=== PATIENT | male | born 1935 | race Caucasian/White ===

== ENCOUNTER 2019-04-04 17:37 | Inpatient (IN) | payer MEDICARE ==
[~2019-04-04] VITALS: Ht 170.2 cm; Wt 84.4 kg
[~2019-04-04 17:37] MED LIST: ASCO500T3 PO; ASPI-630 PO; ATOR40TA59 PO; CYAN-25 PO; FINA5TAB4 PO; LISI-334 PO; METO50TA6 PO; MULT1TAB6 PO; OMEG1CAP27 PO; PANT20TA2 PO; SUCR1TAB PO
[2019-04-04] MEDS ORDERED: NITROGLYCERIN SUBLINGUAL 0.4 MG BOTTLE OF 25. SL PRN (17:45)
--- NOTE | 2019-04-04 17:53 | PHYS DOC ---
Adult General Chief Complaint Chief Complaint: CHEST PAIN [facility] HPI 83-year-old male presents to the emergency Department complaints of chest pressure, shortness of breath with exertion. Patient has a history of coronary artery disease status post 2 stents in the LAD. He states over the last 3 days he's had chest pressure as well as shortness of breath with exertion. Currently denies any chest pain or pressure at this time. Patient has a permanent pacemaker placement secondary to complete heart block. Patient denies any nausea, vomiting, bowel pain, headache or visual changes. Exertion makes his pain and shortness of breath worse. (RENATO ANDREWS MD) [facility] Patient care turned over to me at shift change. EKG didn't show any acute changes. Remaining troponin results and lab results. His chest x-ray does not show any acute disease. Stable from. Previous. (MJ PARK DO) Review of Systems Review of Systems Constitutional: Denies fever or chills [] Respiratory: Shortness of Breath Cardiovascular: No additional information not addressed in HPI [] GI: Denies abdominal pain, nausea, vomiting, bloody stools or diarrhea [] Musculoskeletal: Denies back pain or joint pain [] Neurologic: Denies headache, focal weakness or sensory changes [] All other systems were reviewed and found to be within normal limits, except as documented in this note. (RENATO ANDREWS MD) Current Medications Current Medications Current Medications Medications (Trade) Dose Ordered Sig/Jamia Start Time Stop Time Status Last Admin Dose Admin Lisinopril (Prinivil) 20 mg 1X ONCE 04/04/19 19:45 04/04/19 19:46 UNV Metoprolol Tartrate (Lopressor) 50 mg 1X ONCE 04/04/19 19:45 04/04/19 19:46 UNV Nitroglycerin (Nitrostat) 0.4 mg PRN Q5MIN PRN 04/04/19 17:45 04/05/19 17:44 04/04/19 18:30 0.4 MG (MJ PARK DO) Allergies Allergies Allergies Coded Allergies Type Severity Reaction Last Updated Verified No Known Drug Allergies 08/04/18 No (MJ PARK DO) Physical Exam Physical Exam Constitutional: Well developed, well nourished, no acute distress, non-toxic appearance. [] HENT: Normocephalic, atraumatic, bilateral external ears normal, oropharynx moist, no oral exudates, nose normal. [] Eyes: PERRLA, EOMI, conjunctiva normal, no discharge. [] Cardiovascular:Heart rate regular rhythm, no murmur [] Lungs & Thorax: Bilateral breath sounds clear to auscultation [] Abdomen: Bowel sounds normal, soft, no tenderness, no masses, no pulsatile masses. [] Skin: Warm, dry, no erythema, no rash. [] Back: No tenderness, no CVA tenderness. [] Extremities: No tenderness, no edema. [] Neurologic: Alert and oriented X 3, no focal deficits noted. [] Psychologic: Affect normal, judgement normal, mood normal. [] (RENATO ANDREWS MD) Current Patient Data Vital Signs Vital Signs Date Time Temp Pulse Resp B/P (MAP) Pulse Ox O2 Delivery O2 Flow Rate FiO2 04/04/19 19:00 78 20 166/120 (135) 95 Room Air 04/04/19 17:41 98.1 98.1 ([facility] ) Lab Values Laboratory Tests Test 04/04/19 17:51 White Blood Count 7.6 x10^3/uL (4.0-11.0) Red Blood Count 4.41 x10^6/uL (4.30-5.70) Hemoglobin 14.3 g/dL (13.0-17.5) Hematocrit 42.0 % (39.0-53.0) Mean Corpuscular Volume 95 fL (79-100) Mean Corpuscular Hemoglobin 32 pg (25-35) Mean Corpuscular Hemoglobin Concent 34 g/dL (31-37) Red Cell Distribution Width 14.2 % (11.5-14.5) Platelet Count 158 x10^3/uL (140-400) Neutrophils (%) (Auto) 56 % (31-73) Lymphocytes (%) (Auto) 32 % (24-48) Monocytes (%) (Auto) 10 % (0-9) H Eosinophils (%) (Auto) 1 % (0-3) Basophils (%) (Auto) 1 % (0-3) Neutrophils # (Auto) 4.3 x10^3/uL (1.8-7.7) Lymphocytes # (Auto) 2.5 x10^3/uL (1.0-4.8) Monocytes # (Auto) 0.8 x10^3/uL (0.0-1.1) Eosinophils # (Auto) 0.1 x10^3/uL (0.0-0.7) Basophils # (Auto) 0.0 x10^3/uL (0.0-0.2) Sodium Level 145 mmol/L (136-145) Potassium Level 4.3 mmol/L (3.5-5.1) Chloride Level 107 mmol/L (98-107) Carbon Dioxide Level 29 mmol/L (21-32) Anion Gap 9 (6-14) Blood Urea Nitrogen 16 mg/dL (8-26) Creatinine 1.1 mg/dL (0.7-1.3) Estimated GFR (Cockcroft-Gault) 63.9 BUN/Creatinine Ratio 15 (6-20) Glucose Level 106 mg/dL (70-99) H Calcium Level 9.1 mg/dL (8.5-10.1) Total Bilirubin 0.8 mg/dL (0.2-1.0) Aspartate Amino Transferase (AST) 19 U/L (15-37) Alanine Aminotransferase (ALT) 23 U/L (16-63) Alkaline Phosphatase 89 U/L (46-116) Troponin I Quantitative < 0.017 ng/mL (0.000-0.055) Total Protein 7.2 g/dL (6.4-8.2) Albumin 3.6 g/dL (3.4-5.0) Albumin/Globulin Ratio 1.0 (1.0-1.7) Laboratory Tests 04/04/19 17:51 Laboratory Tests 04/04/19 17:51 (MJ PARK DO) EKG EKG EKG reveals paced rhythm, left axis deviation, heart rate 96, nonurgent EKG[] Interpretation Time: Interpretation time 1750 (RENATO ANDREWS MD) Radiology/Procedures Radiology/Procedures [] (RENATO ANDREWS MD) Radiology/Procedures Chest x-ray is stable from previous. No acute disease. (MJ PARK DO) Course & Med Decision Making Course & Med Decision Making Pertinent Labs and Imaging studies reviewed. (See chart for details) [] 83-year-old male presents to the emergency Department complaints of chest pressure, shortness of breath with exertion. Patient has a history of coronary artery disease status post 2 stents in the LAD. He states over the last 3 days he's had chest pressure as well as shortness of breath with exertion. Currently denies any chest pain or pressure at this time. Patient has a permanent pacemaker placement secondary to complete heart block. Patient denies any nausea, vomiting, bowel pain, headache or visual changes. Exertion makes his pain and shortness of breath worse. (RENATO ANDREWS MD) Course & Med Decision Making Labs are within normal limits. Troponin is negative. EKG does not show any acute changes. Chest x-ray is stable from previous. Patient does say that this is similar to how he felt 20 years ago when he had a heart attack and had 2 stents in his LAD. Patient does say that he had a negative negative stress test 4 months ago. Patient's blood pressure is elevated to 172/70. Patient will need to be observed overnight and have a chest pain work up. I discussed results and plan of care patient. I discussed case with Dr. turk at 8:40 PM. Admission accepted. Patient's home blood pressure medication is given. We'll continue to monitor while patient is in the ED. (MJ PARK DO) Dragon Disclaimer Dragon Disclaimer This electronic medical record was generated, in whole or in part, using a voice recognition dictation system. (RENATO ANDREWS MD) Departure Departure Impression: Primary Impression: Chest pain Referrals: NATHALIA MARTINEZ MD (PCP) Problem Qualifiers Primary Impression: Chest pain Chest pain type: unspecified Qualified Codes: R07.9 - Chest pain, unspecified RENATO ANDREWS MD Apr 04, 2019 17:53 MJ PARK DO Apr 04, 2019 19:38
[2019-04-04 18:00] LABS: BASO % 1 % (0-3); EOS # 0.1 x10^3/uL (0.0-0.7); EOS % 1 % (0-3); HEMOGLOBIN 14.3 g/dL (13.0-17.5); LYMPH # 2.5 x10^3/uL (1.0-4.8); LYMPH % 32 % (24-48); MEAN CORPUSCULAR HEMOGLOBIN 32 pg (25-35); MEAN CORPUSCULAR HGB CONC 34 g/dL (31-37); MEAN CORPUSCULAR VOLUME 95 fL (79-100); MONO # 0.8 x10^3/uL (0.0-1.1); MONO % 10 % (0-9); NEUT # 4.3 x10^3/uL (1.8-7.7); NEUT % 56 % (31-73); PLATELET COUNT 158 x10^3/uL (140-400); RED BLOOD COUNT 4.41 x10^6/uL (4.30-5.70); RED CELL DISTRIBUTION WIDTH 14.2 % (11.5-14.5); WHITE BLOOD COUNT 7.6 x10^3/uL (4.0-11.0)
[2019-04-04 18:10] LABS: CALCIUM 9.1 mg/dL (8.5-10.1); CREATININE 1.1 mg/dL (0.7-1.3); GFR 63.9; POTASSIUM 4.3 mmol/L (3.5-5.1)
[2019-04-04 18:13] LABS: ALBUMIN 3.6 g/dL (3.4-5.0); TOTAL BILIRUBIN 0.8 mg/dL (0.2-1.0); TOTAL PROTEIN 7.2 g/dL (6.4-8.2)
--- NOTE | 2019-04-04 19:49 | PDOC1 ---
History and Physical Date of Admission Date of Admission DATE: 04/04/19 TIME: 19:48 Source Source: Chart review, Patient History of Present Illness History of Present Illness THis is a 83-year-old male admit with acute chest pain. Pain to the left side of his chest, with pressure, and dyspnea and not reproducible. Pain 6/10, started when taking groceries in, now persistes at rest. . Patient has a history of coronary artery disease status post 2 stents in the LAD. He states over the last 3 days he's had chest pressure as well as shortness of breath with exertion. . Patient has a permanent pacemaker placement secondary to complete heart block. Patient denies any nausea, vomiting, bowel pain, headache or visual changes. Exertion makes his pain and shortness of bri ath worse. 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 Past Medical History Cardiovascular: CAD, HTN GI: No pertinent hx Rheumatologic: No pertinent hx Renal/: No pertinent hx Past Surgical History Past Surgical History: Other (stents) Family History Family History: Heart Disease Social History Smoke: Quit (many years ago) ALCOHOL: rare Drugs: None Current Problem List Problem List Problems Medical Problems: (1) Chest pain Status: Acute Current Medications Current Medications Current Medications Nitroglycerin (Nitrostat) 0.4 mg PRN Q5MIN PRN SL CP RATING > 1/10 Last administered on 04/04/19at 18:30; Start 04/04/19 at 17:45; Stop 04/05/19 at 17:44 Active Scripts Active Reported Atorvastatin Calcium 40 Mg Tablet 40 Mg PO HS Metoprolol Tartrate 50 Mg Tablet 1 Tab PO BID Lisinopril 20 Mg Tablet 1 Tab PO BID Sucralfate 1 Gm Tablet 1 Gm PO BID Protonix (Pantoprazole Sodium) 20 Mg Tablet.dr 1 Tab PO DAILY Fish Oil 1,000 Mg Softgel (Braham-3 Fatty Acids/Fish Oil) 1 Each Capsule 1 Each PO DAILY Centrum Complete Multivit Tab (Multivitamin/Iron/Folic Acid) 1 Each Tablet 1 Each PO DAILY Finasteride 5 Mg Tablet 1 Tab PO DAILY Vitamin B-12 (Cyanocobalamin (Vitamin B-12)) 1,000 Mcg Tablet 1 Tab PO DAILY Aspirin 81 Mg Tab.chew 1 Tab PO DAILY Ascorbic Acid 500 Mg Tablet 1,000 Mg PO DAILY Allergies Allergies: Coded Allergies: No Known Drug Allergies (Unverified , 08/04/18) ROS General: No: Chills, Night Sweats, Fatigue, Malaise, Appetite, Other PSYCHOLOGICAL ROS: No: Anxiety, Behavioral Disorder, Concentration difficultie, Decreased libido, Depression, Disorientation, Hallucinations, Hostility, Irritablity, Memory difficulties, Mood Swings, Obsessive thoughts, Physical abuse, Sexual abuse, Sleep disturbances, Suicidal ideation, Other Eyes: No Blurry vision, No Decreased vision, No Double vision, No Dry eyes, No Excessive tearing, No Eye Pain, No Itchy Eyes, No Loss of vision, No Photophobia, No Scotomata, No Uses contacts, No Uses glasses, No Other HEENT: No: Heacaches, Visual Changes, Hearing change, Nasal congestion, Nasal discharge, Oral lesions, Sinus pain, Sore Throat, Epistaxis, Sneezing, Snoring, Tinnitus, Vertigo, Vocal changes, Other Respiratory: No: Cough, Hemoptysis, Orthopnea, Pleuritic Pain, Shortness of breath, SOB with excertion, Sputum Changes, Stridor, Tachypnea, Wheezing, Other Cardiovascular: yes Chest Pain, yes Other; No Palpitations, No Orthopnea, No Paroxysmal Noc. Dyspnea, No Edema, No Lt Headedness Gastrointestinal: No Nausea, No Vomiting, No Abdominal Pain, No Diarrhea, No Constipation, No Melena, No Hematochezia, No Other Genitourinary: No Dysuria, No Frequency, No Incontinence, No Hematuria, No Retention, No Discharge, No Urgency, No Pain, No Flank Pain, No Other, No , No , No , No , No , No , No Musculoskeletal: Yes Joint Stiffness; No Gait Disturbance, No Joint Pain, No Joint Swelling, No Muscle Pain, No Muscular Weakness, No Pain In:, No Swelling In:, No Other Neurological: No Behavorial Changes, No Bowel/Bladder ControlChng, No Confusion, No Dizziness, No Gait Disturbance, No Headaches, No Impaired Coord/balance, No Memory Loss, No Numbness/Tingling, No Seizures, No Speech Problems, No Tremors, No Visual Changes, No Weakness, No Other Skin: Yes Dry Skin; No Eczema, No Hair Changes, No Lumps, No Mole Changes, No Mottling, No Nail Changes, No Pruritus, No Rash, No Skin Lesion Changes, No Other, No Acne Physical Exam General: Alert, Oriented X3, Cooperative, mild distress HEENT: PERRLA, EOMI, Mucous membr. moist/pink Lungs: Clear to auscultation, Normal air movement Heart: S1S2, RRR, no gallops Extremities: No cyanosis, No edema, Normal pulses Skin: No rashes, No breakdown, No significant lesion Neuro: Normal gait, Normal speech, Normal tone, Sensation intact, Cranial nerves 3-12 NL Psych/Mental Status: Mental status NL, Mood NL Vitals Vitals Vital Signs Date Time Temp Pulse Resp B/P (MAP) Pulse Ox O2 Delivery O2 Flow Rate FiO2 04/04/19 19:00 78 20 166/120 (135) 95 Room Air 04/04/19 17:41 98.1 98.1 Labs Labs Laboratory Tests Test 04/04/19 17:51 White Blood Count 7.6 x10^3/uL (4.0-11.0) Red Blood Count 4.41 x10^6/uL (4.30-5.70) Hemoglobin 14.3 g/dL (13.0-17.5) Hematocrit 42.0 % (39.0-53.0) Mean Corpuscular Volume 95 fL (79-100) Mean Corpuscular Hemoglobin 32 pg (25-35) Mean Corpuscular Hemoglobin Concent 34 g/dL (31-37) Red Cell Distribution Width 14.2 % (11.5-14.5) Platelet Count 158 x10^3/uL (140-400) Neutrophils (%) (Auto) 56 % (31-73) Lymphocytes (%) (Auto) 32 % (24-48) Monocytes (%) (Auto) 10 % (0-9) Eosinophils (%) (Auto) 1 % (0-3) Basophils (%) (Auto) 1 % (0-3) Neutrophils # (Auto) 4.3 x10^3/uL (1.8-7.7) Lymphocytes # (Auto) 2.5 x10^3/uL (1.0-4.8) Monocytes # (Auto) 0.8 x10^3/uL (0.0-1.1) Eosinophils # (Auto) 0.1 x10^3/uL (0.0-0.7) Basophils # (Auto) 0.0 x10^3/uL (0.0-0.2) Sodium Level 145 mmol/L (136-145) Potassium Level 4.3 mmol/L (3.5-5.1) Chloride Level 107 mmol/L (98-107) Carbon Dioxide Level 29 mmol/L (21-32) Anion Gap 9 (6-14) Blood Urea Nitrogen 16 mg/dL (8-26) Creatinine 1.1 mg/dL (0.7-1.3) Estimated GFR (Cockcroft-Gault) 63.9 BUN/Creatinine Ratio 15 (6-20) Glucose Level 106 mg/dL (70-99) Calcium Level 9.1 mg/dL (8.5-10.1) Total Bilirubin 0.8 mg/dL (0.2-1.0) Aspartate Amino Transf (AST/SGOT) 19 U/L (15-37) Alanine Aminotransferase (ALT/SGPT) 23 U/L (16-63) Alkaline Phosphatase 89 U/L (46-116) Troponin I Quantitative < 0.017 ng/mL (0.000-0.055) Total Protein 7.2 g/dL (6.4-8.2) Albumin 3.6 g/dL (3.4-5.0) Albumin/Globulin Ratio 1.0 (1.0-1.7) Laboratory Tests Test 04/04/19 17:51 White Blood Count 7.6 x10^3/uL (4.0-11.0) Red Blood Count 4.41 x10^6/uL (4.30-5.70) Hemoglobin 14.3 g/dL (13.0-17.5) Hematocrit 42.0 % (39.0-53.0) Mean Corpuscular Volume 95 fL (79-100) Mean Corpuscular Hemoglobin 32 pg (25-35) Mean Corpuscular Hemoglobin Concent 34 g/dL (31-37) Red Cell Distribution Width 14.2 % (11.5-14.5) Platelet Count 158 x10^3/uL (140-400) Neutrophils (%) (Auto) 56 % (31-73) Lymphocytes (%) (Auto) 32 % (24-48) Monocytes (%) (Auto) 10 % (0-9) Eosinophils (%) (Auto) 1 % (0-3) Basophils (%) (Auto) 1 % (0-3) Neutrophils # (Auto) 4.3 x10^3/uL (1.8-7.7) Lymphocytes # (Auto) 2.5 x10^3/uL (1.0-4.8) Monocytes # (Auto) 0.8 x10^3/uL (0.0-1.1) Eosinophils # (Auto) 0.1 x10^3/uL (0.0-0.7) Basophils # (Auto) 0.0 x10^3/uL (0.0-0.2) Sodium Level 145 mmol/L (136-145) Potassium Level 4.3 mmol/L (3.5-5.1) Chloride Level 107 mmol/L (98-107) Carbon Dioxide Level 29 mmol/L (21-32) Anion Gap 9 (6-14) Blood Urea Nitrogen 16 mg/dL (8-26) Creatinine 1.1 mg/dL (0.7-1.3) Estimated GFR (Cockcroft-Gault) 63.9 BUN/Creatinine Ratio 15 (6-20) Glucose Level 106 mg/dL (70-99) Calcium Level 9.1 mg/dL (8.5-10.1) Total Bilirubin 0.8 mg/dL (0.2-1.0) Aspartate Amino Transf (AST/SGOT) 19 U/L (15-37) Alanine Aminotransferase (ALT/SGPT) 23 U/L (16-63) Alkaline Phosphatase 89 U/L (46-116) Troponin I Quantitative < 0.017 ng/mL (0.000-0.055) Total Protein 7.2 g/dL (6.4-8.2) Albumin 3.6 g/dL (3.4-5.0) Albumin/Globulin Ratio 1.0 (1.0-1.7) VTE Prophylaxis Ordered VTE Prophylaxis Devices: No VTE Pharmacological Prophylaxi: Yes Assessment/Plan Assessment/Plan 1. chest pain, angina with pressure on prior known CAD, status post percutaneous coronary intervention with stents. 2. Hx of complete heart block, status post Biotronik permanent pacemaker. 3. Acute on chronic diastolic congestive heart failure, , 4. Hypertension., accelerated, meds given MEGAN GODINEZ MD Apr 04, 2019 19:49
[2019-04-04] MEDS ORDERED: METOPROLOL TART IMMED RELEASE 50 MG TABLET. PO ONE (20:00)
[2019-04-04] MEDS ORDERED: LISINOPRIL 10 MG TABLET PO ONE (20:00)
[2019-04-04 21:00] VITALS: BP 181/82
--- NOTE | 2019-04-04 21:06 | RAD ---
AP portable chest radiograph 04/04/2019 Clinical History: Chest pain. An AP erect portable digital radiograph of the chest was obtained. Comparison study is dated 08/05/2018. A pacemaker is unchanged position. The cardiac silhouette is mildly enlarged. The thoracic aorta is mildly tortuous. No acute pulmonary infiltrate is seen. No pleural effusion or pneumothorax is noted. The osseous structures are unchanged. Impression: No acute abnormality is seen. Electronically signed by: Ervin Ron MD (04/04/2019 9:04 PM) [facility]
[2019-04-04 23:10] VITALS: BP 153/70
[2019-04-04] MEDS: SUCRALFATE 1 GM TABLET. PO SCH (23:21)
[2019-04-04] MEDS: ATORVASTATIN CALCIUM 40 MG TABLET. PO SCH (23:21)
[2019-04-05] VITALS (17 sets, daily range): BP systolic 135–188; BP diastolic 61–112
[2019-04-05 01:43] LABS: BASO % 1 % (0-3); EOS # 0.1 x10^3/uL (0.0-0.7); EOS % 2 % (0-3); HEMATOCRIT 39.2 % (39.0-53.0); HEMOGLOBIN 13.3 g/dL (13.0-17.5); LYMPH # 2.1 x10^3/uL (1.0-4.8); LYMPH % 31 % (24-48); MEAN CORPUSCULAR HEMOGLOBIN 32 pg (25-35); MEAN CORPUSCULAR HGB CONC 34 g/dL (31-37); MEAN CORPUSCULAR VOLUME 94 fL (79-100); MONO % 15 % (0-9); NEUT # 3.4 x10^3/uL (1.8-7.7); NEUT % 52 % (31-73); PLATELET COUNT 150 x10^3/uL (140-400); RED BLOOD COUNT 4.16 x10^6/uL (4.30-5.70); WHITE BLOOD COUNT 6.7 x10^3/uL (4.0-11.0)
[2019-04-05 01:55] LABS: ALBUMIN 3.1 g/dL (3.4-5.0); CALCIUM 8.5 mg/dL (8.5-10.1); GFR 71.4; POTASSIUM 4.2 mmol/L (3.5-5.1); TOTAL BILIRUBIN 0.6 mg/dL (0.2-1.0); TOTAL PROTEIN 6.3 g/dL (6.4-8.2)
[2019-04-05 01:56] LABS: CHOLESTEROL/HDL RATIO 2.7
--- NOTE | 2019-04-05 06:17 | EKG ---
[facility] [address] [place] [address] Test Date: 2019-04-04 Test Time: 17:42:29 Pat Name: PATY LAW Department: Room: 244 1 Gender: M Bottler: : 1935 Requested By: RENATO ANDREWS Order Number: [id number] Reading MD: Jason Botello MD Measurements Intervals [place] Rate: 96 P: NC: QRS: -55 QRSD: 180 T: 84 QT: 404 QTc: 518 Interpretive Statements SR 1ST DEG AVB V-PACED Electronically Signed On 04-12-2019 15:42:25 CDT by Jason Botello MD
[2019-04-05] MEDS: PANTOPRAZOLE 40 MG TABLET.DR. PO SCH (08:16)
[2019-04-05] MEDS: ASCORBIC ACID 500 MG TABLET PO SCH (08:16)
[2019-04-05] MEDS: METOPROLOL TART IMMED RELEASE 50 MG TABLET. PO SCH ×2 (08:16→20:43)
[2019-04-05] MEDS: LISINOPRIL 20 MG TABLET PO SCH ×2 (08:17→20:43)
[2019-04-05] MEDS: ENOXAPARIN 40 MG/0.4 ML SYRINGE. SQ SCH (08:17)
[2019-04-05] MEDS: SUCRALFATE 1 GM TABLET. PO SCH ×2 (08:17→20:42)
[2019-04-05] MEDS: FINASTERIDE 5 MG TABLET. PO SCH (08:17)
[2019-04-05] MEDS: CYANOCOBALAMIN (VITAMIN B-12) 1,000 MCG TABLET. PO SCH (08:17)
[2019-04-05] MEDS ORDERED: ASPIRIN CHEWABLE 81 MG TABLET. PO SCH (09:00)
--- NOTE | 2019-04-05 09:04 | PDOC2 ---
GRISEL BUI SAS DEVELOPER ANALYST 04/05/19 0904: CARDIAC CONSULT DATE OF CONSULT Date of Consult DATE: 04/05/19 TIME: 08:40 REASON FOR CONSULT Reason for Consult: Gregorio REFERRING PHYSICIAN Referring Physician: Chest pain SOURCE Source: Chart review, Patient HISTORY OF PRESENT ILLNESS HISTORY OF PRESENT ILLNESS This is a pleasant 83 yo male admitted for complains of chest pain. Reports that he was carrying groceries 3 days ago and went up 5 steps and started having midchest pressure without radiation, nausea or diaphoresis. Also noted with some SOA. this lasted about 3-5 minutes. This occurred 2 times that day. It occurred 2 days ago and yesterday as well no more than 5 minutes. Again no other associated symptoms. What concerns him is it was like when he had his stent 20 yrs ago. However he has been working out for 20-30 minutes 3 times weekly using treadmill and bike without any symptoms. No changes in his activity tolerance but feels tires more than usual. PAST MEDICAL HISTORY Cardiovascular: CAD, HTN, [place], Hyperlipidemia, Other (CHB) Pulmonary: No pertinent hx CENTRAL NERVOUS SYSTEM: Other (No pertinent history) GI: GERD Musculoskeletal: Osteoarthritis Rheumatologic: No pertinent hx Infectious disease: No pertinent hx ENT: No pertinent hx Renal/: No pertinent hx, Prostate Ca. Endocrine: No pertinent hx Dermatology: No pertinent hx PAST SURGICAL HISTORY Past Surgical History: Pacemaker, Other (PCI/STAR to LAD 1999) FAMILY HISTORY Family History noncontributory SOCIAL HISTORY Smoke: No ALCOHOL: none Drugs: None Lives: with Family CURRENT MEDICATIONS CURRENT MEDICATIONS Current Medications Medications (Trade) Dose Ordered Sig/Jamia Route PRN Reason Start Time Stop Time Status Last Admin Dose Admin Nitroglycerin (Nitrostat) 0.4 mg PRN Q5MIN PRN SL CP RATING > 06/2404/04/19 17:45 04/05/19 17:44 04/04/19 18:30 Metoprolol Tartrate (Lopressor) 50 mg 1X ONCE PO 04/04/19 20:00 04/04/19 20:01 DC 04/04/19 20:14 Lisinopril (Prinivil) 20 mg 1X ONCE PO 04/04/19 20:00 04/04/19 20:01 DC 04/04/19 20:15 Ascorbic Acid (Vitamin C) 1,000 mg DAILY PO 04/05/19 09:00 04/05/19 08:16 Aspirin (Children'S Aspirin) 81 mg DAILY PO 04/05/19 09:00 04/05/19 08:16 Atorvastatin Calcium (Lipitor) 40 mg HS PO 04/04/19 21:00 04/04/19 23:21 Cyanocobalamin (Vitamin B-12) 1,000 mcg DAILY PO 04/05/19 09:00 04/05/19 08:17 Finasteride (Proscar) 5 mg DAILY PO 04/05/19 09:00 04/05/19 08:17 Lisinopril (Prinivil) 20 mg BID PO 04/05/19 09:00 04/05/19 08:17 Metoprolol Tartrate (Lopressor) 50 mg BID PO 04/05/19 09:00 04/05/19 08:16 Sucralfate (Carafate) 1 gm BID PO 04/04/19 21:00 04/05/19 08:17 Pantoprazole Sodium (Protonix) 40 mg DAILYAC PO 04/05/19 07:30 04/05/19 08:16 Enoxaparin Sodium (Lovenox 40mg Syringe) 40 mg DAILY SQ 04/05/19 09:00 04/05/19 08:17 ALLERGIES ALLERGIES: Coded Allergies: No Known Drug Allergies (Unverified , 08/04/18) ROS Review of System 14 point ROS evaluated with pertinent positives noted per HPI PHYSICAL EXAM General: Alert, Oriented X3, Cooperative, No acute distress HEENT: Atraumatic, Mucous membr. moist/pink Lungs: Clear to auscultation, Normal air movement Heart: Regular rate (vpaced), Other (2/) Abdomen: Soft, No tenderness Extremities: No cyanosis Skin: No breakdown, No significant lesion Neuro: Normal speech, Sensation intact Psych/Mental Status: Mental status NL, Mood NL MUSCULOSKELETAL: Osteoarthritic changes both hands VITALS/I&O VITALS/I&O: Vital Signs Date Time Temp Pulse Resp B/P (MAP) Pulse Ox O2 Delivery O2 Flow Rate FiO2 04/05/19 08:17 61 184/74 04/05/19 07:00 98.1 18 95 Room Air 98.1 I & O 04/04/19 04/04/19 04/05/19 15:00 23:00 07:00 Intake Total 0 ml 300 ml Output Total 200 ml 500 ml Balance -200 ml -200 ml LABS Lab: Laboratory Tests Test 04/04/19 17:51 04/05/19 01:30 White Blood Count 7.6 x10^3/uL (4.0-11.0) 6.7 x10^3/uL (4.0-11.0) Red Blood Count 4.41 x10^6/uL (4.30-5.70) 4.16 x10^6/uL (4.30-5.70) L Hemoglobin 14.3 g/dL (13.0-17.5) 13.3 g/dL (13.0-17.5) Hematocrit 42.0 % (39.0-53.0) 39.2 % (39.0-53.0) Mean Corpuscular Volume 95 fL (79-100) 94 fL (79-100) Mean Corpuscular Hemoglobin 32 pg (25-35) 32 pg (25-35) Mean Corpuscular Hemoglobin Concent 34 g/dL (31-37) 34 g/dL (31-37) Red Cell Distribution Width 14.2 % (11.5-14.5) 14.0 % (11.5-14.5) Platelet Count 158 x10^3/uL (140-400) 150 x10^3/uL (140-400) Neutrophils (%) (Auto) 56 % (31-73) 52 % (31-73) Lymphocytes (%) (Auto) 32 % (24-48) 31 % (24-48) Monocytes (%) (Auto) 10 % (0-9) H 15 % (0-9) H Eosinophils (%) (Auto) 1 % (0-3) 2 % (0-3) Basophils (%) (Auto) 1 % (0-3) 1 % (0-3) Neutrophils # (Auto) 4.3 x10^3/uL (1.8-7.7) 3.4 x10^3/uL (1.8-7.7) Lymphocytes # (Auto) 2.5 x10^3/uL (1.0-4.8) 2.1 x10^3/uL (1.0-4.8) Monocytes # (Auto) 0.8 x10^3/uL (0.0-1.1) 1.0 x10^3/uL (0.0-1.1) Eosinophils # (Auto) 0.1 x10^3/uL (0.0-0.7) 0.1 x10^3/uL (0.0-0.7) Basophils # (Auto) 0.0 x10^3/uL (0.0-0.2) 0.0 x10^3/uL (0.0-0.2) Sodium Level 145 mmol/L (136-145) 144 mmol/L (136-145) Potassium Level 4.3 mmol/L (3.5-5.1) 4.2 mmol/L (3.5-5.1) Chloride Level 107 mmol/L (98-107) 106 mmol/L (98-107) Carbon Dioxide Level 29 mmol/L (21-32) 31 mmol/L (21-32) Anion Gap 9 (6-14) 7 (6-14) Blood Urea Nitrogen 16 mg/dL (8-26) 15 mg/dL (8-26) Creatinine 1.1 mg/dL (0.7-1.3) 1.0 mg/dL (0.7-1.3) Estimated GFR (Cockcroft-Gault) 63.9 71.4 BUN/Creatinine Ratio 15 (6-20) 15 (6-20) Glucose Level 106 mg/dL (70-99) H 107 mg/dL (70-99) H Calcium Level 9.1 mg/dL (8.5-10.1) 8.5 mg/dL (8.5-10.1) Total Bilirubin 0.8 mg/dL (0.2-1.0) 0.6 mg/dL (0.2-1.0) Aspartate Amino Transferase (AST) 19 U/L (15-37) 15 U/L (15-37) Alanine Aminotransferase (ALT) 23 U/L (16-63) 20 U/L (16-63) Alkaline Phosphatase 89 U/L (46-116) 78 U/L (46-116) Troponin I Quantitative < 0.017 ng/mL (0.000-0.055) < 0.017 ng/mL (0.000-0.055) Total Protein 7.2 g/dL (6.4-8.2) 6.3 g/dL (6.4-8.2) L Albumin 3.6 g/dL (3.4-5.0) 3.1 g/dL (3.4-5.0) L Albumin/Globulin Ratio 1.0 (1.0-1.7) 1.0 (1.0-1.7) Triglycerides Level 107 mg/dL (0-150) Cholesterol Level 137 mg/dL (0-200) LDL Cholesterol, Calculated 66 mg/dL (0-100) VLDL Cholesterol, Calculated 21 mg/dL (0-40) Non-HDL Cholesterol Calculated 87 mg/dL (0-129) HDL Cholesterol 50 mg/dL (40-60) Cholesterol/HDL Ratio 2.7 Laboratory Tests 04/04/19 17:51 04/05/19 01:30 Laboratory Tests 04/04/19 17:51 04/05/19 01:30 STRESS TEST STRESS TEST unremarkable stress test 11/2018 ASSESSMENT/PLAN ASSESSMENT/PLAN 1. Chest pain: trops nml, no acute changes to EKG, however symptoms are the same when he had stent placed in the past. 2. PPM in situ: Biotronik. RV pacing, impedance stable. A pacing 29%, no significant arrhythmias. 3. CAD: LAD stent in 1999 4. HTN: labile 5. HLP: lipids on goal. 6. Arrhythmias: possible SVTs. AFIB burden per pacer is 0. Recommendations 1. TTE. 2. MPI vs LHC. Possible UA. Discussed with pt significantly including risks and benefits and would like to proceed with LHC. 3. Continue with secondary prevention 3. Will resume home BP meds. Will probably add norvasc pending BP trend PATY REYNAGA MD 04/05/19 1126: CARDIAC CONSULT ASSESSMENT/PLAN ASSESSMENT/PLAN Patient seen and examined. Agree with [facility]'s assessment and plan. Symptoms concerning for unstable angina. Myocardial infarction has been ruled out. Agree with cardiac catheterization and possible angioplasty. Risks and benefits were explained. Pacemaker check showed normal function with adequate battery life. Thank you for your consultation. GRISEL BUI APRN Apr 05, 2019 09:04 PATY REYNAGA MD Apr 05, 2019 11:26
[2019-04-05] MEDS ORDERED: LIDOCAINE 1% PF 2 ML VIAL. ONE (09:34)
[2019-04-05] MEDS ORDERED: IOHEXOL 300 MG/ML 100ML VIAL. ONE (09:34)
[2019-04-05] MEDS ORDERED: MIDAZOLAM HCL/PF 2 MG/2 ML VIAL. ONE ×2 (09:40→10:21)
[2019-04-05] MEDS ORDERED: fentaNYL PF VIAL 100 MCG/2 ML VIAL ONE (09:40)
[2019-04-05] MEDS ORDERED: NITROGLYCERIN 200 MCG/2 ML SYRINGE FOR CATH/VASC LAB. ONE (09:40)
[2019-04-05] MEDS ORDERED: HEPARIN for IV BOLUS 10,000 UNIT/10 ML VIAL. ONE (09:40)
[2019-04-05] MEDS ORDERED: VERAPAMIL 5 MG/2 ML VIAL. ONE (09:40)
[2019-04-05] MEDS ORDERED: fentaNYL PF VIAL 100 MCG/2 ML VIAL IV ONE (09:45)
[2019-04-05] MEDS ORDERED: NITROGLYCERIN 200 MCG/2 ML SYRINGE FOR CATH/VASC LAB. IART ONE (09:45)
[2019-04-05] MEDS ORDERED: MIDAZOLAM HCL/PF 2 MG/2 ML VIAL. IV ONE (09:45)
[2019-04-05] MEDS ORDERED: LIDOCAINE 1% PF 2 ML VIAL. INJ ONE (09:45)
[2019-04-05] MEDS ORDERED: IOHEXOL 300 MG/ML 100ML VIAL. IART ONE (09:45)
[2019-04-05] MEDS ORDERED: VERAPAMIL 5 MG/2 ML VIAL. IART ONE (09:45)
[2019-04-05] MEDS ORDERED: HEPARIN for IV BOLUS 10,000 UNIT/10 ML VIAL. IART ONE (09:45)
[2019-04-05] MEDS ORDERED: BIVALIRUDIN 250 MG VIAL. IV ONE ×2 (10:36→10:45)
[2019-04-05] MEDS ORDERED: IODIXANOL 320 MG/ML 100 ML VIAL. ONE (10:37)
[2019-04-05] MEDS ORDERED: CLOPIDOGREL BISULFATE 75 MG TABLET ONE (10:57)
[2019-04-05] MEDS ORDERED: ASPIRIN 325 MG TABLET ONE (10:57)
[2019-04-05] MEDS ORDERED: ASPIRIN 325 MG TABLET PO ONE (11:00)
[2019-04-05] MEDS ORDERED: CLOPIDOGREL BISULFATE 75 MG TABLET PO ONE (11:00)
--- NOTE | 2019-04-05 11:21 | PDOC ---
MODERATE SEDATION ASSESSMENT RISKS/ALTERNATIVES Risks/Alternatives Risks and alternatives of this type of sedation and procedure discussed with: RISK/ALTERNATIVES: Patient H & P ON CHART H & P H & P on chart and reviewed for co-morbid conditions and appropriate labs. H&P ON CHART: Yes STATUS PREG STATUS ASSESSED: N/A MEDS/ALLERGIES REVIEWED Meds/Allergies Reviewed Medications and Allergies including time and route of recently administered narcotics and sedatives. MEDS/ALLERGIES REVIEWED: Yes ASA RATING ASA RATING: II AIRWAY ASSESSMENT Airway Assessment Airway patency, oral function limitations, presence of caps, crowns, dentures, partials, and ability to extend neck assessed. AIRWAY ASSESSMENT: Yes MALLAMPATI SCORE MALLAMPATI SCORE: II PRE-SEDATION ASSESSMENT PRE-SEDATION ASSESSMENT: Yes PATY REYNAGA MD Apr 05, 2019 11:21
[2019-04-05] MEDS ORDERED: IV 1/2 NORMAL SALINE 1,000 ML IV SCH (11:22)
[2019-04-05] MEDS ORDERED: 0.9 % SODIUM CHLORIDE 10 ML DISP.SYRIN. IV PRN (11:30)
[2019-04-05] MEDS ORDERED: NITROGLYCERIN SUBLINGUAL 0.4 MG BOTTLE OF 25. SL PRN (11:30)
[2019-04-05] MEDS ORDERED: ACETAMINOPHEN 325 MG TABLET. PO PRN (11:30)
--- NOTE | 2019-04-05 11:36 | CARD ---
MR#: [id number] Date of Study: 04/05/2019 Ordering Physician: GRISEL BUI, Referring Physician: GRISEL BUI Tech: DICKSON COHN RTR APPROVED REPORT Technologist: DICKSON COHN RTR Nurse: Jo Ann Bailey RN Procedure(s) performed: 1. Left heart catheterization, selective coronary angiography and left ventr iculography via right transradial approach 2. Successful PCI/drug eluting stent placement to the left circumflex artery MODERATE SEDATION TIME: 50 MINUTES FLUORO TIME: 11.0 MIN DOSE: 82.9 GYCM2 CONTRAST: 166 INDICATION The indication(s) include : unstable angina . CS Clinical Frailty Scale CS Clinical Frailty Scale: Mildly Frail Heart Failure Heart Failure: No PROCEDURE NARRATIVE After explaining the risks, benefits and alternative options, informed consent was obtained from luiza ent. Patient was brought to the cardiac Reed Polisher and right wrist was prepped and draped in the usual fashion after confirming a positive modified Justus's test. Arterial access was obtained in the righ t radial artery and a 6 Azerbaijani sheath was inserted. 6 Azerbaijani Ran catheter was used to perform rae ective angiography of the left and right coronary arteries. 6 Azerbaijani pigtail catheter was used to pe rform left ventriculography. The following findings were noted. FINDINGS 1. Hemodynamics: Left ventricular end-diastolic pressure of 15 mmHg. No pullback gradient across th e aortic valve. 2. Left ventriculography: Normal left ventricle systolic function with ejection fraction estimated at 55-60%. No significant mitral regurgitation seen. 3. Coronary angiography: a. The left main coronary artery arose from the left sinus of Valsalva, gave rise to the left anteri or descending and left circumflex arteries and did not show any significant stenosis. b. The left anterior descending artery showed patent stent in the midsegment. c. The left circumflex artery showed calcified 80% stenosis in the proximal segment. The obtuse mar ginal branch showed 30% stenosis in proximal segment. d. The right coronary artery was a dominant vessel arising from the right sinus of Valsalva that shy wed 30% stenosis in the proximal to midsegment. INTERVENTION The left main coronary artery was engaged with a 6 Azerbaijani XB 3.5 guide catheter. The stenosis in the proximal segment of the left circumflex artery was crossed with a 0.014 inch Twones water guidewir e. This was predilated with a 2.5 x 15 mm trek balloon following which this was successfully treated with a 3.0 x 15 mm Xience Alpine drug-eluting stent. Follow-up angiography showed resolution of the s tenosis to 0% with KANE-3 distal flow. Patient tolerated the procedure well. Hemostasis was achieved using TR band. There were no immediate complications. KANE Flow KANE Flow (Pre-Intervention): KANE-2 KANE Flow (Post-Intervention): KANE-3 Conclusion 1. Patent previously placed stent in the left anterior descending artery. 80% calcified stenosis inv olving proximal segment of the left circumflex artery. 2. Successful PCI/STAR to left circumflex artery. 3. Normal left ventricle systolic function with ejection fraction estimated at 55-60%. Recommendations 1. Aspirin 325 mg daily for month followed by 81 mg daily 2. Plavix 75 mA daily for preferably one year 3. Cardiovascular risk factor modification Signed by : Robert Escobar, Electronically Approved : 04/05/2019 11:35:39
--- NOTE | 2019-04-05 12:56 | PDOC ---
PROGRESS NOTES Chief Complaint Chief Complaint 1. chest pain, unstable angina with pressure w. known CAD 2. Hx of complete heart block, status post Biotronik permanent pacemaker. 3. Acute on chronic diastolic congestive heart failure, , 4. 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 plan DC in AM Vitals Vitals Vital Signs Date Time Temp Pulse Resp B/P (MAP) Pulse Ox O2 Delivery O2 Flow Rate FiO2 04/05/19 11:35 98.0 60 18 161/74 (103) 95 Room Air 98.0 04/05/19 11:15 2.0 Physical Exam General: Alert, Oriented X3, Cooperative, No acute distress Heart: Regular rate (vpaced), Other (2/) Abdomen: Soft, No tenderness Extremities: No cyanosis Skin: No breakdown, No significant lesion Labs LABS Laboratory Tests Test 04/04/19 17:51 04/05/19 01:30 White Blood Count 7.6 x10^3/uL (4.0-11.0) 6.7 x10^3/uL (4.0-11.0) Red Blood Count 4.41 x10^6/uL (4.30-5.70) 4.16 x10^6/uL (4.30-5.70) Hemoglobin 14.3 g/dL (13.0-17.5) 13.3 g/dL (13.0-17.5) Hematocrit 42.0 % (39.0-53.0) 39.2 % (39.0-53.0) Mean Corpuscular Volume 95 fL (79-100) 94 fL (79-100) Mean Corpuscular Hemoglobin 32 pg (25-35) 32 pg (25-35) Mean Corpuscular Hemoglobin Concent 34 g/dL (31-37) 34 g/dL (31-37) Red Cell Distribution Width 14.2 % (11.5-14.5) 14.0 % (11.5-14.5) Platelet Count 158 x10^3/uL (140-400) 150 x10^3/uL (140-400) Neutrophils (%) (Auto) 56 % (31-73) 52 % (31-73) Lymphocytes (%) (Auto) 32 % (24-48) 31 % (24-48) Monocytes (%) (Auto) 10 % (0-9) 15 % (0-9) Eosinophils (%) (Auto) 1 % (0-3) 2 % (0-3) Basophils (%) (Auto) 1 % (0-3) 1 % (0-3) Neutrophils # (Auto) 4.3 x10^3/uL (1.8-7.7) 3.4 x10^3/uL (1.8-7.7) Lymphocytes # (Auto) 2.5 x10^3/uL (1.0-4.8) 2.1 x10^3/uL (1.0-4.8) Monocytes # (Auto) 0.8 x10^3/uL (0.0-1.1) 1.0 x10^3/uL (0.0-1.1) Eosinophils # (Auto) 0.1 x10^3/uL (0.0-0.7) 0.1 x10^3/uL (0.0-0.7) Basophils # (Auto) 0.0 x10^3/uL (0.0-0.2) 0.0 x10^3/uL (0.0-0.2) Sodium Level 145 mmol/L (136-145) 144 mmol/L (136-145) Potassium Level 4.3 mmol/L (3.5-5.1) 4.2 mmol/L (3.5-5.1) Chloride Level 107 mmol/L (98-107) 106 mmol/L (98-107) Carbon Dioxide Level 29 mmol/L (21-32) 31 mmol/L (21-32) Anion Gap 9 (6-14) 7 (6-14) Blood Urea Nitrogen 16 mg/dL (8-26) 15 mg/dL (8-26) Creatinine 1.1 mg/dL (0.7-1.3) 1.0 mg/dL (0.7-1.3) Estimated GFR (Cockcroft-Gault) 63.9 71.4 BUN/Creatinine Ratio 15 (6-20) 15 (6-20) Glucose Level 106 mg/dL (70-99) 107 mg/dL (70-99) Calcium Level 9.1 mg/dL (8.5-10.1) 8.5 mg/dL (8.5-10.1) Total Bilirubin 0.8 mg/dL (0.2-1.0) 0.6 mg/dL (0.2-1.0) Aspartate Amino Transf (AST/SGOT) 19 U/L (15-37) 15 U/L (15-37) Alanine Aminotransferase (ALT/SGPT) 23 U/L (16-63) 20 U/L (16-63) Alkaline Phosphatase 89 U/L (46-116) 78 U/L (46-116) Troponin I Quantitative < 0.017 ng/mL (0.000-0.055) < 0.017 ng/mL (0.000-0.055) Total Protein 7.2 g/dL (6.4-8.2) 6.3 g/dL (6.4-8.2) Albumin 3.6 g/dL (3.4-5.0) 3.1 g/dL (3.4-5.0) Albumin/Globulin Ratio 1.0 (1.0-1.7) 1.0 (1.0-1.7) Triglycerides Level 107 mg/dL (0-150) Cholesterol Level 137 mg/dL (0-200) LDL Cholesterol, Calculated 66 mg/dL (0-100) VLDL Cholesterol, Calculated 21 mg/dL (0-40) Non-HDL Cholesterol Calculated 87 mg/dL (0-129) HDL Cholesterol 50 mg/dL (40-60) Cholesterol/HDL Ratio 2.7 Assessment and Plan Assessmemt and Plan Problems Medical Problems: (1) Chest pain Status: Acute Comment Review of Relevant I have reviewed the following items lela (where applicable) has been applied. Labs Laboratory Tests Test 04/04/19 17:51 04/05/19 01:30 White Blood Count 7.6 x10^3/uL (4.0-11.0) 6.7 x10^3/uL (4.0-11.0) Red Blood Count 4.41 x10^6/uL (4.30-5.70) 4.16 x10^6/uL (4.30-5.70) Hemoglobin 14.3 g/dL (13.0-17.5) 13.3 g/dL (13.0-17.5) Hematocrit 42.0 % (39.0-53.0) 39.2 % (39.0-53.0) Mean Corpuscular Volume 95 fL (79-100) 94 fL (79-100) Mean Corpuscular Hemoglobin 32 pg (25-35) 32 pg (25-35) Mean Corpuscular Hemoglobin Concent 34 g/dL (31-37) 34 g/dL (31-37) Red Cell Distribution Width 14.2 % (11.5-14.5) 14.0 % (11.5-14.5) Platelet Count 158 x10^3/uL (140-400) 150 x10^3/uL (140-400) Neutrophils (%) (Auto) 56 % (31-73) 52 % (31-73) Lymphocytes (%) (Auto) 32 % (24-48) 31 % (24-48) Monocytes (%) (Auto) 10 % (0-9) 15 % (0-9) Eosinophils (%) (Auto) 1 % (0-3) 2 % (0-3) Basophils (%) (Auto) 1 % (0-3) 1 % (0-3) Neutrophils # (Auto) 4.3 x10^3/uL (1.8-7.7) 3.4 x10^3/uL (1.8-7.7) Lymphocytes # (Auto) 2.5 x10^3/uL (1.0-4.8) 2.1 x10^3/uL (1.0-4.8) Monocytes # (Auto) 0.8 x10^3/uL (0.0-1.1) 1.0 x10^3/uL (0.0-1.1) Eosinophils # (Auto) 0.1 x10^3/uL (0.0-0.7) 0.1 x10^3/uL (0.0-0.7) Basophils # (Auto) 0.0 x10^3/uL (0.0-0.2) 0.0 x10^3/uL (0.0-0.2) Sodium Level 145 mmol/L (136-145) 144 mmol/L (136-145) Potassium Level 4.3 mmol/L (3.5-5.1) 4.2 mmol/L (3.5-5.1) Chloride Level 107 mmol/L (98-107) 106 mmol/L (98-107) Carbon Dioxide Level 29 mmol/L (21-32) 31 mmol/L (21-32) Anion Gap 9 (6-14) 7 (6-14) Blood Urea Nitrogen 16 mg/dL (8-26) 15 mg/dL (8-26) Creatinine 1.1 mg/dL (0.7-1.3) 1.0 mg/dL (0.7-1.3) Estimated GFR (Cockcroft-Gault) 63.9 71.4 BUN/Creatinine Ratio 15 (6-20) 15 (6-20) Glucose Level 106 mg/dL (70-99) 107 mg/dL (70-99) Calcium Level 9.1 mg/dL (8.5-10.1) 8.5 mg/dL (8.5-10.1) Total Bilirubin 0.8 mg/dL (0.2-1.0) 0.6 mg/dL (0.2-1.0) Aspartate Amino Transf (AST/SGOT) 19 U/L (15-37) 15 U/L (15-37) Alanine Aminotransferase (ALT/SGPT) 23 U/L (16-63) 20 U/L (16-63) Alkaline Phosphatase 89 U/L (46-116) 78 U/L (46-116) Troponin I Quantitative < 0.017 ng/mL (0.000-0.055) < 0.017 ng/mL (0.000-0.055) Total Protein 7.2 g/dL (6.4-8.2) 6.3 g/dL (6.4-8.2) Albumin 3.6 g/dL (3.4-5.0) 3.1 g/dL (3.4-5.0) Albumin/Globulin Ratio 1.0 (1.0-1.7) 1.0 (1.0-1.7) Triglycerides Level 107 mg/dL (0-150) Cholesterol Level 137 mg/dL (0-200) LDL Cholesterol, Calculated 66 mg/dL (0-100) VLDL Cholesterol, Calculated 21 mg/dL (0-40) Non-HDL Cholesterol Calculated 87 mg/dL (0-129) HDL Cholesterol 50 mg/dL (40-60) Cholesterol/HDL Ratio 2.7 Laboratory Tests Test 04/04/19 17:51 04/05/19 01:30 White Blood Count 7.6 x10^3/uL (4.0-11.0) 6.7 x10^3/uL (4.0-11.0) Red Blood Count 4.41 x10^6/uL (4.30-5.70) 4.16 x10^6/uL (4.30-5.70) Hemoglobin 14.3 g/dL (13.0-17.5) 13.3 g/dL (13.0-17.5) Hematocrit 42.0 % (39.0-53.0) 39.2 % (39.0-53.0) Mean Corpuscular Volume 95 fL (79-100) 94 fL (79-100) Mean Corpuscular Hemoglobin 32 pg (25-35) 32 pg (25-35) Mean Corpuscular Hemoglobin Concent 34 g/dL (31-37) 34 g/dL (31-37) Red Cell Distribution Width 14.2 % (11.5-14.5) 14.0 % (11.5-14.5) Platelet Count 158 x10^3/uL (140-400) 150 x10^3/uL (140-400) Neutrophils (%) (Auto) 56 % (31-73) 52 % (31-73) Lymphocytes (%) (Auto) 32 % (24-48) 31 % (24-48) Monocytes (%) (Auto) 10 % (0-9) 15 % (0-9) Eosinophils (%) (Auto) 1 % (0-3) 2 % (0-3) Basophils (%) (Auto) 1 % (0-3) 1 % (0-3) Neutrophils # (Auto) 4.3 x10^3/uL (1.8-7.7) 3.4 x10^3/uL (1.8-7.7) Lymphocytes # (Auto) 2.5 x10^3/uL (1.0-4.8) 2.1 x10^3/uL (1.0-4.8) Monocytes # (Auto) 0.8 x10^3/uL (0.0-1.1) 1.0 x10^3/uL (0.0-1.1) Eosinophils # (Auto) 0.1 x10^3/uL (0.0-0.7) 0.1 x10^3/uL (0.0-0.7) Basophils # (Auto) 0.0 x10^3/uL (0.0-0.2) 0.0 x10^3/uL (0.0-0.2) Sodium Level 145 mmol/L (136-145) 144 mmol/L (136-145) Potassium Level 4.3 mmol/L (3.5-5.1) 4.2 mmol/L (3.5-5.1) Chloride Level 107 mmol/L (98-107) 106 mmol/L (98-107) Carbon Dioxide Level 29 mmol/L (21-32) 31 mmol/L (21-32) Anion Gap 9 (6-14) 7 (6-14) Blood Urea Nitrogen 16 mg/dL (8-26) 15 mg/dL (8-26) Creatinine 1.1 mg/dL (0.7-1.3) 1.0 mg/dL (0.7-1.3) Estimated GFR (Cockcroft-Gault) 63.9 71.4 BUN/Creatinine Ratio 15 (6-20) 15 (6-20) Glucose Level 106 mg/dL (70-99) 107 mg/dL (70-99) Calcium Level 9.1 mg/dL (8.5-10.1) 8.5 mg/dL (8.5-10.1) Total Bilirubin 0.8 mg/dL (0.2-1.0) 0.6 mg/dL (0.2-1.0) Aspartate Amino Transf (AST/SGOT) 19 U/L (15-37) 15 U/L (15-37) Alanine Aminotransferase (ALT/SGPT) 23 U/L (16-63) 20 U/L (16-63) Alkaline Phosphatase 89 U/L (46-116) 78 U/L (46-116) Troponin I Quantitative < 0.017 ng/mL (0.000-0.055) < 0.017 ng/mL (0.000-0.055) Total Protein 7.2 g/dL (6.4-8.2) 6.3 g/dL (6.4-8.2) Albumin 3.6 g/dL (3.4-5.0) 3.1 g/dL (3.4-5.0) Albumin/Globulin Ratio 1.0 (1.0-1.7) 1.0 (1.0-1.7) Triglycerides Level 107 mg/dL (0-150) Cholesterol Level 137 mg/dL (0-200) LDL Cholesterol, Calculated 66 mg/dL (0-100) VLDL Cholesterol, Calculated 21 mg/dL (0-40) Non-HDL Cholesterol Calculated 87 mg/dL (0-129) HDL Cholesterol 50 mg/dL (40-60) Cholesterol/HDL Ratio 2.7 Medications Current Medications Nitroglycerin (Nitrostat) 0.4 mg PRN Q5MIN PRN SL CP RATING > 1/10 Last administered on 04/04/19at 18:30; Start 04/04/19 at 17:45; Stop 04/05/19 at 17:44 Metoprolol Tartrate (Lopressor) 50 mg 1X ONCE PO Last administered on 04/04/19at 20:14; Start 04/04/19 at 20:00; Stop 04/04/19 at 20:01; Status DC Lisinopril (Prinivil) 20 mg 1X ONCE PO Last administered on 04/04/19at 20:15; Start 04/04/19 at 20:00; Stop 04/04/19 at 20:01; Status DC Ascorbic Acid (Vitamin C) 1,000 mg DAILY PO Last administered on 04/05/19at 08:16; Start 04/05/19 at 09:00 Aspirin (Children'S Aspirin) 81 mg DAILY PO Last administered on 04/05/19at 08:16; Start 04/05/19 at 09:00; Stop 04/05/19 at 11:25; Status DC Atorvastatin Calcium (Lipitor) 40 mg HS PO Last administered on 04/04/19at 23:21; Start 04/04/19 at 21:00 Cyanocobalamin (Vitamin B-12) 1,000 mcg DAILY PO Last administered on 04/05/19at 08:17; Start 04/05/19 at 09:00 Finasteride (Proscar) 5 mg DAILY PO Last administered on 04/05/19at 08:17; Start 04/05/19 at 09:00 Lisinopril (Prinivil) 20 mg BID PO Last administered on 04/05/19at 08:17; Start 04/05/19 at 09:00 Metoprolol Tartrate (Lopressor) 50 mg BID PO Last administered on 04/05/19at 08:16; Start 04/05/19 at 09:00 Sucralfate (Carafate) 1 gm BID PO Last administered on 04/05/19at 08:17; Start 04/04/19 at 21:00 Pantoprazole Sodium (Protonix) 40 mg DAILYAC PO Last administered on 04/05/19at 08:16; Start 04/05/19 at 07:30 Enoxaparin Sodium (Lovenox Per Pharmacy Prophylaxis Dosing) 1 each PRN DAILY PRN MC SEE COMMENTS; Start 04/05/19 at 09:00 Enoxaparin Sodium (Lovenox 40mg Syringe) 40 mg DAILY SQ Last administered on 04/05/19at 08:17; Start 04/05/19 at 09:00 Lidocaine HCl (Xylocaine-Mpf 1% 2ml Vial) 2 ml STK-MED ONCE .ROUTE ; Start 04/05/19 at 09:34; Stop 04/05/19 at 09:34; Status DC Iohexol (Omnipaque 300 Mg/ml) 100 ml STK-MED ONCE .ROUTE ; Start 04/05/19 at 09:34; Stop 04/05/19 at 09:34; Status DC Heparin Sodium/ Sodium Chloride 1,000 ml @ As Directed STK-MED ONCE .ROUTE ; Start 04/05/19 at 09:34; Stop 04/05/19 at 09:34; Status DC Fentanyl Citrate (Fentanyl 2ml Vial) 100 mcg STK-MED ONCE .ROUTE ; Start 04/05/19 at 09:40; Stop 04/05/19 at 09:40; Status DC Midazolam HCl (Versed) 2 mg STK-MED ONCE .ROUTE ; Start 04/05/19 at 09:40; Stop 04/05/19 at 09:40; Status DC Heparin Sodium (Porcine) (Heparin Sodium) 10,000 unit STK-MED ONCE .ROUTE ; Start 04/05/19 at 09:40; Stop 04/05/19 at 09:40; Status DC Verapamil HCl (Verapamil) 5 mg STK-MED ONCE .ROUTE ; Start 04/05/19 at 09:40; Stop 04/05/19 at 09:40; Status DC Nitroglycerin (Nitroglycerin) 200 mcg STK-MED ONCE .ROUTE ; Start 04/05/19 at 09:40; Stop 04/05/19 at 09:41; Status DC Nitroglycerin (Nitroglycerin) 200 mcg 1X ONCE IART Last administered on 04/05/19at 09:45; Start 04/05/19 at 09:45; Stop 04/05/19 at 10:00; Status DC Verapamil HCl (Verapamil) 2.5 mg 1X ONCE IART Last administered on 04/05/19 09:45; Start 04/05/19 at 09:45; Stop 04/05/19 at 10:00; Status DC Heparin Sodium (Porcine) (Heparin Sodium) 2,500 unit 1X ONCE IART Last administered on 04/05/19 09:45; Start 04/05/19 at 09:45; Stop 04/05/19 at 10:05; Status DC Heparin Sodium/ Sodium Chloride (HEPARIN for ARTERIAL LINE FLUSH) 1,000 unit 1X ONCE IART Last administered on 04/05/19 09:45; Start 04/05/19 at 09:45; Stop 04/05/19 at 10:05; Status DC Heparin Sodium/ Sodium Chloride (HEPARIN for ARTERIAL LINE FLUSH) 1,000 unit 1X ONCE IART Last administered on 04/05/19 09:45; Start 04/05/19 at 09:45; Stop 04/05/19 at 10:05; Status DC Midazolam HCl (Versed) 2 mg 1X ONCE IV Last administered on 04/05/19 09:45; Start 04/05/19 at 09:45; Stop 04/05/19 at 10:05; Status DC Fentanyl Citrate (Fentanyl 2ml Vial) 100 mcg 1X ONCE IV Last administered on 04/05/19 09:45; Start 04/05/19 at 09:45; Stop 04/05/19 at 10:05; Status DC Iohexol (Omnipaque 300 Mg/ml) 100 ml 1X ONCE IART Last administered on 09:45; Start 04/05/19 at 09:45; Stop 04/05/19 at 10:05; Status DC Lidocaine HCl (Xylocaine-Mpf 1% 2ml Vial) 2 ml 1X ONCE INJ Last administered on 04/05/19at 09:45; Start 04/05/19 at 09:45; Stop 04/05/19 at 10:05; Status DC Midazolam HCl (Versed) 2 mg STK-MED ONCE .ROUTE ; Start 04/05/19 at 10:21; Stop 04/05/19 at 10:21; Status DC Bivalirudin (Angiomax) 250 mg STK-MED ONCE IV ; Start 04/05/19 at 10:36; Stop 04/05/19 at 10:36; Status DC Iodixanol (Visipaque 320) 100 ml STK-MED ONCE .ROUTE ; Start 04/05/19 at 10:37; Stop 04/05/19 at 10:37; Status DC Bivalirudin (Angiomax) 250 mg 1X ONCE IV Last administered on 04/05/19at 10:43; Start 04/05/19 at 10:45; Stop 04/05/19 at 10:46; Status DC Clopidogrel Bisulfate (Plavix) 600 mg 1X ONCE PO Last administered on 04/05/19at 11:12; Start 04/05/19 at 11:00; Stop 04/05/19 at 11:01; Status DC Aspirin (Slim Aspirin) 325 mg 1X ONCE PO Last administered on 04/05/19at 11:12; Start 04/05/19 at 11:00; Stop 04/05/19 at 11:01; Status DC Clopidogrel Bisulfate (Plavix) 75 mg STK-MED ONCE .ROUTE ; Start 04/05/19 at 10:57; Stop 04/05/19 at 10:57; Status DC Aspirin (Slim Aspirin) 325 mg STK-MED ONCE .ROUTE ; Start 04/05/19 at 10:57; Stop 04/05/19 at 10:57; Status DC Aspirin (Ecotrin) 325 mg DAILYWBKFT PO ; Start 04/06/19 at 08:00 Sodium Chloride (Normal Saline Flush) 3 ml QSHIFT PRN IV AFTER MEDS AND BLOOD DRAWS; Start 04/05/19 at 11:30 Sodium Chloride 1,000 ml @ 125 mls/hr Q8H IV Last administered on 04/05/19at 12:09; Start 04/05/19 at 11:22; Stop 04/05/19 at 19:21 Clopidogrel Bisulfate (Plavix) 75 mg DAILYWBKFT PO ; Start 04/06/19 at 08:00 Acetaminophen (Tylenol) 650 mg PRN Q6HRS PRN PO MILD PAIN / TEMP; Start 04/05/19 at 11:30 Nitroglycerin (Nitrostat) 0.4 mg PRN Q5MIN PRN SL CHEST PAIN; Start 04/05/19 at 11:30 Active Scripts Active Reported Atorvastatin Calcium 40 Mg Tablet 40 Mg PO HS Metoprolol Tartrate 50 Mg Tablet 1 Tab PO BID Lisinopril 20 Mg Tablet 1 Tab PO BID Sucralfate 1 Gm Tablet 1 Gm PO BID Protonix (Pantoprazole Sodium) 20 Mg Tablet.dr 1 Tab PO DAILY Fish Oil 1,000 Mg Softgel (Dunbar-3 Fatty Acids/Fish Oil) 1 Each Capsule 1 Each PO DAILY Centrum Complete Multivit Tab (Multivitamin/Iron/Folic Acid) 1 Each Tablet 1 Each PO DAILY Finasteride 5 Mg Tablet 1 Tab PO DAILY Vitamin B-12 (Cyanocobalamin (Vitamin B-12)) 1,000 Mcg Tablet 1 Tab PO DAILY Aspirin 81 Mg Tab.chew 1 Tab PO DAILY Ascorbic Acid 500 Mg Tablet 1,000 Mg PO DAILY Vitals/I & O Vital Sign - Last 24 Hours 04/04/19 04/04/19 04/04/19 04/04/19 17:41 18:30 19:00 19:18 Temp 98.1 98.1 Pulse 67 74 78 72 Resp 18 20 24 B/P (MAP) 109/78 (88) 170/70 166/120 (135) 168/72 (104) Pulse Ox 92 95 96 O2 Delivery Room Air Room Air Room Air 04/04/19 04/04/19 04/04/19 04/04/19 19:37 19:54 20:14 20:15 Pulse 70 72 85 75 Resp 24 24 B/P (MAP) 196/77 (116) 198/99 (132) 198/99 198/99 Pulse Ox 94 94 O2 Delivery Room Air Room Air 04/04/19 04/04/19 04/04/19 04/04/19 20:19 21:00 21:53 23:10 Temp 97.7 98.0 97.7 98.0 Pulse 74 77 74 Resp 20 20 18 B/P (MAP) 186/80 (115) 181/82 (115) 153/70 (97) Pulse Ox 93 95 94 O2 Delivery Room Air Room Air Room Air Room Air 04/05/19 04/05/19 04/05/19 04/05/19 03:34 07:00 08:00 08:16 Temp 98.3 98.1 98.3 98.1 Pulse 61 61 61 Resp 18 18 B/P (MAP) 154/67 (96) 184/74 (110) 184/74 Pulse Ox 94 95 O2 Delivery Room Air Room Air Room Air 04/05/19 04/05/19 04/05/19 04/05/19 08:17 09:45 09:45 11:15 Pulse 61 62 60 Resp 18 18 B/P (MAP) 184/74 Pulse Ox 98 O2 Delivery Nasal Cannula O2 Flow Rate 2.0 04/05/19 11:35 Temp 98.0 98.0 Pulse 60 Resp 18 B/P (MAP) 161/74 (103) Pulse Ox 95 O2 Delivery Room Air Intake and Output 04/04/19 04/04/19 04/05/19 15:00 23:00 07:00 Intake Total 0 ml 300 ml Output Total 200 ml 500 ml Balance -200 ml -200 ml MEGAN GODINEZ MD Apr 05, 2019 12:56
--- NOTE | 2019-04-05 12:57 | NUR ---
SS following for discharge planning. SS reviewed pt chart. Pt is from home and is currently on room air. SS will continue to follow for discharge planning.
[2019-04-05] MEDS ORDERED: LISINOPRIL 10 MG TABLET PO ONE (14:15)
[2019-04-05] MEDS ORDERED: hydrALAZINE 20 MG/ML VIAL. IVP PRN (18:15)
[2019-04-05] MEDS ORDERED: NITROGLYCERIN OINT 1 GM PACKET. TP PRN (18:30)
[2019-04-05] MEDS: ATORVASTATIN CALCIUM 40 MG TABLET. PO SCH (20:42)
[2019-04-06 03:00] VITALS: BP 152/70
[2019-04-06 07:00] VITALS: BP 171/72
[2019-04-06] MEDS ORDERED: ASPIRIN ENTERIC COATED 325 MG TABLET.DR. PO SCH (08:00)
[2019-04-06] MEDS ORDERED: CLOPIDOGREL BISULFATE 75 MG TABLET PO SCH (08:00)
[2019-04-06] MEDS: ENOXAPARIN 40 MG/0.4 ML SYRINGE. SQ SCH (09:00)
[2019-04-06] MEDS ORDERED: LISINOPRIL 10 MG TABLET PO SCH (09:00)
--- NOTE | 2019-04-06 09:49 | PDOC ---
PROGRESS NOTES Chief Complaint Chief Complaint discharge dx 1. chest pain, unstable angina with pressure w. known CAD 2. Hx of complete heart block, status post Biotronik permanent pacemaker. There is a pacemaker lead in the right ventricle. 3. Acute on chronic diastolic congestive heart failure, , 4. Hypertension., accelerated, meds given remains suboptimal control new rx lisinopril 40mg po daily hctz 12.5 mg po daily asa 325 mg po daily plavix 75 mg po daily History of Present Illness History of Present Illness laboratory aide stent placed, feeling better PROCEDURE NARRATIVE After explaining the risks, benefits and alternative options, informed consent was obtained from patient. Patient was brought to the cardiac [facility] and right wrist was prepped and draped in the usual fashion after confirming a positive modified Justus's test. Arterial access was obtained in the right radial artery and a 6 [place] sheath was inserted. 6 [place] Ran catheter was used to perform selective angiography of the left and right coronary arteries. 6 [place] pigtail catheter was used to perform left ventriculography. The following findings were noted. FINDINGS 1. Hemodynamics: Left ventricular end-diastolic pressure of 15 mmHg. No pullback gradient across the aortic valve. 2. Left ventriculography: Normal left ventricle systolic function with ejection fraction estimated at 55-60%. No significant mitral regurgitation seen. 3. Coronary angiography: a. The left main coronary artery arose from the left sinus of Valsalva, gave rise to the left anterior descending and left circumflex arteries and did not show any significant stenosis. b. The left anterior descending artery showed patent stent in the midsegment. c. The left circumflex artery showed calcified 80% stenosis in the proximal se gment. The obtuse marginal branch showed 30% stenosis in proximal segment. d. The right coronary artery was a dominant vessel arising from the right sinus of Valsalva that showed 30% stenosis in the proximal to midsegment. INTERVENTION The left main coronary artery was engaged with a 6 [place] XB 3.5 guide catheter. The stenosis in the proximal segment of the left circumflex artery was crossed with a 0.014 inch Lumenz water guidewire. This was predilated with a 2.5 x 15 mm trek balloon following which this was successfully treated with a 3.0 x 15 mm Xience Alpine drug-eluting stent. Follow-up angiography showed resolution of the stenosis to 0% with KANE-3 distal flow. Patient tolerated the procedure well. Hemostasis was achieved using TR band. There were no immediate complications. KANE Flow KANE Flow (Pre-Intervention): KANE-2 KANE Flow (Post-Intervention): KANE-3 Conclusion 1. Patent previously placed stent in the left anterior descending artery. 80% calcified stenosis involving proximal segment of the left circumflex artery. 2. Successful PCI/STAR to left circumflex artery. 3. Normal left ventricle systolic function with ejection fraction estimated at 55-60%. Recommendations 1. Aspirin 325 mg daily for month followed by 81 mg daily 2. Plavix 75 mA daily for preferably one year 3. Cardiovascular risk factor modification Signed by : Paty Escobar, Electronically Approved : 04/05/2019 11:35:39 DICTATED and SIGNED BY: PATY ESCOBAR MD DATE: 04/05/19 1112 Vitals Vitals Vital Signs Date Time Temp Pulse Resp B/P (MAP) Pulse Ox O2 Delivery O2 Flow Rate FiO2 04/06/19 08:00 Room Air 04/06/19 07:00 98.4 82 18 171/72 (105) 93 98.4 04/05/19 12:15 2.0 Physical Exam General: Alert, Oriented X3, Cooperative, No acute distress Heart: Regular rate (vpaced), Normal S1, Other (2/) Lungs: Clear Abdomen: Normal bowel sounds, Soft, No tenderness Extremities: No cyanosis Skin: No breakdown, No significant lesion Labs LABS TDI E/Lateral E' 9.1 E/Medial E' 11.5 Tricuspid Valve TR P. Velocity 264cm/s RAP ESTIMATE 3mmHg TR Peak Gr. 31mmHg RVSP 34mmHg Pulmonary Vein S1 Velocity 49.7cm/s D2 Velocity 39.9cm/s PVa duration 111msec LEFT VENTRICLE The left ventricle is normal size. There is moderate concentric left ventricular hypertrophy. The left ventricular systolic function is normal and the ejection fraction is within normal range. The Ejection Fraction is >55%. There is normal LV segmental wall motion. Transmitral Doppler flow pattern is Grade I-abnormal relaxation pattern. RIGHT VENTRICLE The right ventricle is normal size. There is normal right ventricular wall thic kness. The right ventricular systolic function is normal. There is a pacemaker lead in the right ventricle. ATRIA The left atrium size is normal. There is a pacemaker lead seen in the right atrium. The right atrium size is normal. The interatrial septum is intact with no evidence for an atrial septal defect or patent foramen ovale as noted on 2-D or Doppler imaging. AORTIC VALVE The aortic valve is thickened but opens well. Doppler and Color Flow revealed no significant aortic regurgitation. There is no significant aortic valvular stenosis. MITRAL VALVE The mitral valve is normal in structure and function. There is no evidence of mitral valve prolapse. There is no mitral valve stenosis. Doppler and Color-flow revealed trace mitral regurgitation. TRICUSPID VALVE The tricuspid valve is normal in structure and function. Doppler and Color Flow revealed trace tricuspid regurgitation with an estimated PAP of 24 mmHg. There is no tricuspid valve stenosis. PULMONIC VALVE The pulmonic valve is not well visualized. Doppler and Color Flow revealed no pulmonic valvular regurgitation. There is no pulmonic valvular stenosis. GREAT VESSELS The aortic root is normal in size. The ascending aorta is normal in size. The IVC is normal in size and collapses >50% with inspiration. PERICARDIAL EFFUSION There is no evidence of significant pericardial effusion. Critical Notification Critical Value: No <Conclusion> The left ventricular systolic function is normal and the ejection fraction is within normal range. The Ejection Fraction is >55%. There is normal LV segmental wall motion. There is a pacemaker lead in the right ventricle. Technically difficult study. Signed by : Kumar Botello, Electronically Approved : 04/06/2019 10:20:51 DICTATED and SIGNED BY: KUMAR BOTELLO MD DATE: 04/06/19 0947 Assessment and Plan Assessmemt and Plan Problems Medical Problems: (1) Chest pain Status: Acute Comment Review of Relevant I have reviewed the following items lela (where applicable) has been applied. Labs Laboratory Tests Test 04/04/19 17:51 04/05/19 01:30 White Blood Count 7.6 x10^3/uL (4.0-11.0) 6.7 x10^3/uL (4.0-11.0) Red Blood Count 4.41 x10^6/uL (4.30-5.70) 4.16 x10^6/uL (4.30-5.70) Hemoglobin 14.3 g/dL (13.0-17.5) 13.3 g/dL (13.0-17.5) Hematocrit 42.0 % (39.0-53.0) 39.2 % (39.0-53.0) Mean Corpuscular Volume 95 fL (79-100) 94 fL (79-100) Mean Corpuscular Hemoglobin 32 pg (25-35) 32 pg (25-35) Mean Corpuscular Hemoglobin Concent 34 g/dL (31-37) 34 g/dL (31-37) Red Cell Distribution Width 14.2 % (11.5-14.5) 14.0 % (11.5-14.5) Platelet Count 158 x10^3/uL (140-400) 150 x10^3/uL (140-400) Neutrophils (%) (Auto) 56 % (31-73) 52 % (31-73) Lymphocytes (%) (Auto) 32 % (24-48) 31 % (24-48) Monocytes (%) (Auto) 10 % (0-9) 15 % (0-9) Eosinophils (%) (Auto) 1 % (0-3) 2 % (0-3) Basophils (%) (Auto) 1 % (0-3) 1 % (0-3) Neutrophils # (Auto) 4.3 x10^3/uL (1.8-7.7) 3.4 x10^3/uL (1.8-7.7) Lymphocytes # (Auto) 2.5 x10^3/uL (1.0-4.8) 2.1 x10^3/uL (1.0-4.8) Monocytes # (Auto) 0.8 x10^3/uL (0.0-1.1) 1.0 x10^3/uL (0.0-1.1) Eosinophils # (Auto) 0.1 x10^3/uL (0.0-0.7) 0.1 x10^3/uL (0.0-0.7) Basophils # (Auto) 0.0 x10^3/uL (0.0-0.2) 0.0 x10^3/uL (0.0-0.2) Sodium Level 145 mmol/L (136-145) 144 mmol/L (136-145) Potassium Level 4.3 mmol/L (3.5-5.1) 4.2 mmol/L (3.5-5.1) Chloride Level 107 mmol/L (98-107) 106 mmol/L (98-107) Carbon Dioxide Level 29 mmol/L (21-32) 31 mmol/L (21-32) Anion Gap 9 (6-14) 7 (6-14) Blood Urea Nitrogen 16 mg/dL (8-26) 15 mg/dL (8-26) Creatinine 1.1 mg/dL (0.7-1.3) 1.0 mg/dL (0.7-1.3) Estimated GFR (Cockcroft-Gault) 63.9 71.4 BUN/Creatinine Ratio 15 (6-20) 15 (6-20) Glucose Level 106 mg/dL (70-99) 107 mg/dL (70-99) Calcium Level 9.1 mg/dL (8.5-10.1) 8.5 mg/dL (8.5-10.1) Total Bilirubin 0.8 mg/dL (0.2-1.0) 0.6 mg/dL (0.2-1.0) Aspartate Amino Transf (AST/SGOT) 19 U/L (15-37) 15 U/L (15-37) Alanine Aminotransferase (ALT/SGPT) 23 U/L (16-63) 20 U/L (16-63) Alkaline Phosphatase 89 U/L (46-116) 78 U/L (46-116) Troponin I Quantitative < 0.017 ng/mL (0.000-0.055) < 0.017 ng/mL (0.000-0.055) Total Protein 7.2 g/dL (6.4-8.2) 6.3 g/dL (6.4-8.2) Albumin 3.6 g/dL (3.4-5.0) 3.1 g/dL (3.4-5.0) Albumin/Globulin Ratio 1.0 (1.0-1.7) 1.0 (1.0-1.7) Triglycerides Level 107 mg/dL (0-150) Cholesterol Level 137 mg/dL (0-200) LDL Cholesterol, Calculated 66 mg/dL (0-100) VLDL Cholesterol, Calculated 21 mg/dL (0-40) Non-HDL Cholesterol Calculated 87 mg/dL (0-129) HDL Cholesterol 50 mg/dL (40-60) Cholesterol/HDL Ratio 2.7 Medications Current Medications Nitroglycerin (Nitrostat) 0.4 mg PRN Q5MIN PRN SL CP RATING > 1/10 Last administered on 04/04/19at 18:30; Start 04/04/19 at 17:45; Stop 04/05/19 at 17:44; Status DC Metoprolol Tartrate (Lopressor) 50 mg 1X ONCE PO Last administered on 04/04/19at 20:14; Start 04/04/19 at 20:00; Stop 04/04/19 at 20:01; Status DC Lisinopril (Prinivil) 20 mg 1X ONCE PO Last administered on 04/04/19at 20:15; Start 04/04/19 at 20:00; Stop 04/04/19 at 20:01; Status DC Ascorbic Acid (Vitamin C) 1,000 mg DAILY PO Last administered on 04/05/19at 08:16; Start 04/05/19 at 09:00 Aspirin (Children'S Aspirin) 81 mg DAILY PO Last administered on 04/05/19at 08:16; Start 04/05/19 at 09:00; Stop 04/05/19 at 11:25; Status DC Atorvastatin Calcium (Lipitor) 40 mg HS PO Last administered on 04/05/19at 20:42; Start 04/04/19 at 21:00 Cyanocobalamin (Vitamin B-12) 1,000 mcg DAILY PO Last administered on 04/05/19at 08:17; Start 04/05/19 at 09:00 Finasteride (Proscar) 5 mg DAILY PO Last administered on 04/05/19at 08:17; Start 04/05/19 at 09:00 Lisinopril (Prinivil) 20 mg BID PO Last administered on 04/05/19 20:43; Start 04/05/19 at 09:00 Metoprolol Tartrate (Lopressor) 50 mg BID PO Last administered on 04/05/19at 20:43; Start 04/05/19 at 09:00 Sucralfate (Carafate) 1 gm BID PO Last administered on 04/05/19at 20:42; Start 04/04/19 at 21:00 Pantoprazole Sodium (Protonix) 40 mg DAILYAC PO Last administered on 04/05/19at 08:16; Start 04/05/19 at 07:30 Enoxaparin Sodium (Lovenox Per Pharmacy Prophylaxis Dosing) 1 each PRN DAILY PRN MC SEE COMMENTS; Start 04/05/19 at 09:00 Enoxaparin Sodium (Lovenox 40mg Syringe) 40 mg DAILY SQ Last administered on 04/05/19at 08:17; Start 04/05/19 at 09:00 Lidocaine HCl (Xylocaine-Mpf 1% 2ml Vial) 2 ml STK-MED ONCE .ROUTE ; Start 04/05/19 at 09:34; Stop 04/05/19 at 09:34; Status DC Iohexol (Omnipaque 300 Mg/ml) 100 ml STK-MED ONCE .ROUTE ; Start 04/05/19 at 09:34; Stop 04/05/19 at 09:34; Status DC Heparin Sodium/ Sodium Chloride 1,000 ml @ As Directed STK-MED ONCE .ROUTE ; Start 04/05/19 at 09:34; Stop 04/05/19 at 09:34; Status DC Fentanyl Citrate (Fentanyl 2ml Vial) 100 mcg STK-MED ONCE .ROUTE ; Start 04/05/19 at 09:40; Stop 04/05/19 at 09:40; Status DC Midazolam HCl (Versed) 2 mg STK-MED ONCE .ROUTE ; Start 04/05/19 at 09:40; Stop 04/05/19 at 09:40; Status DC Heparin Sodium (Porcine) (Heparin Sodium) 10,000 unit STK-MED ONCE .ROUTE ; Start 04/05/19 at 09:40; Stop 04/05/19 at 09:40; Status DC Verapamil HCl (Verapamil) 5 mg STK-MED ONCE .ROUTE ; Start 04/05/19 at 09:40; Stop 04/05/19 at 09:40; Status DC Nitroglycerin (Nitroglycerin) 200 mcg STK-MED ONCE .ROUTE ; Start 04/05/19 at 09:40; Stop 04/05/19 at 09:41; Status DC Nitroglycerin (Nitroglycerin) 200 mcg 1X ONCE IART Last administered on 04/05/19at 09:45; Start 04/05/19 at 09:45; Stop 04/05/19 at 10:00; Status DC Verapamil HCl (Verapamil) 2.5 mg 1X ONCE IART Last administered on 04/05/19 09:45; Start 04/05/19 at 09:45; Stop 04/05/19 at 10:00; Status DC Heparin Sodium (Porcine) (Heparin Sodium) 2,500 unit 1X ONCE IART Last administered on 04/05/19 09:45; Start 04/05/19 at 09:45; Stop 04/05/19 at 10:05; Status DC Heparin Sodium/ Sodium Chloride (HEPARIN for ARTERIAL LINE FLUSH) 1,000 unit 1X ONCE IART Last administered on 04/05/19 09:45; Start 04/05/19 at 09:45; Stop 04/05/19 at 10:05; Status DC Heparin Sodium/ Sodium Chloride (HEPARIN for ARTERIAL LINE FLUSH) 1,000 unit 1X ONCE IART Last administered on 04/05/19 09:45; Start 04/05/19 at 09:45; Stop 04/05/19 at 10:05; Status DC Midazolam HCl (Versed) 2 mg 1X ONCE IV Last administered on 04/05/19 09:45; Start 04/05/19 at 09:45; Stop 04/05/19 at 10:05; Status DC Fentanyl Citrate (Fentanyl 2ml Vial) 100 mcg 1X ONCE IV Last administered on 04/05/19 09:45; Start 04/05/19 at 09:45; Stop 04/05/19 at 10:05; Status DC Iohexol (Omnipaque 300 Mg/ml) 100 ml 1X ONCE IART Last administered on 04/05/19 09:45; Start 04/05/19 at 09:45; Stop 04/05/19 at 10:05; Status DC Lidocaine HCl (Xylocaine-Mpf 1% 2ml Vial) 2 ml 1X ONCE INJ Last administered on 04/05/19 09:45; Start 04/05/19 at 09:45; Stop 04/05/19 at 10:05; Status DC Midazolam HCl (Versed) 2 mg STK-MED ONCE .ROUTE ; Start 04/05/19 at 10:21; Stop 04/05/19 at 10:21; Status DC Bivalirudin (Angiomax) 250 mg STK-MED ONCE IV ; Start 04/05/19 at 10:36; Stop 04/05/19 at 10:36; Status DC Iodixanol (Visipaque 320) 100 ml STK-MED ONCE .ROUTE ; Start 04/05/19 at 10:37; Stop 04/05/19 at 10:37; Status DC Bivalirudin (Angiomax) 250 mg 1X ONCE IV Last administered on 04/05/19at 10:43; Start 04/05/19 at 10:45; Stop 04/05/19 at 10:46; Status DC Clopidogrel Bisulfate (Plavix) 600 mg 1X ONCE PO Last administered on 04/05/19at 11:12; Start 04/05/19 at 11:00; Stop 04/05/19 at 11:01; Status DC Aspirin (Slim Aspirin) 325 mg 1X ONCE PO Last administered on 04/05/19at 11:12; Start 04/05/19 at 11:00; Stop 04/05/19 at 11:01; Status DC Clopidogrel Bisulfate (Plavix) 75 mg STK-MED ONCE .ROUTE ; Start 04/05/19 at 10:57; Stop 04/05/19 at 10:57; Status DC Aspirin (Slim Aspirin) 325 mg STK-MED ONCE .ROUTE ; Start 04/05/19 at 10:57; Stop 04/05/19 at 10:57; Status DC Aspirin (Ecotrin) 325 mg DAILYWBKFT PO ; Start 04/06/19 at 08:00 Sodium Chloride (Normal Saline Flush) 3 ml QSHIFT PRN IV AFTER MEDS AND BLOOD DRAWS; Start 04/05/19 at 11:30 Sodium Chloride 1,000 ml @ 125 mls/hr Q8H IV Last administered on 04/05/19at 12:09; Start 04/05/19 at 11:22; Stop 04/05/19 at 19:21; Status DC Clopidogrel Bisulfate (Plavix) 75 mg DAILYWBKFT PO ; Start 04/06/19 at 08:00 Acetaminophen (Tylenol) 650 mg PRN Q6HRS PRN PO MILD PAIN / TEMP; Start 04/05/19 at 11:30 Nitroglycerin (Nitrostat) 0.4 mg PRN Q5MIN PRN SL CHEST PAIN; Start 04/05/19 at 11:30 Lisinopril (Prinivil) 10 mg 1X ONCE PO ; Start 04/05/19 at 14:15; Stop 04/05/19 at 14:16; Status DC Lisinopril (Prinivil) 10 mg DAILY PO ; Start 04/06/19 at 09:00 Hydralazine HCl (Apresoline Inj) 10 mg PRN Q4HRS PRN IVP ELEVATED BP, SEE COMMENTS Last administered on 04/05/19at 18:21; Start 04/05/19 at 18:15 Nitroglycerin (Nitro-Bid Oint) 2 inch PRN Q8HRS PRN TP HYPERTENSION; Start 04/05/19 at 18:30 Active Scripts Active Reported Atorvastatin Calcium 40 Mg Tablet 40 Mg PO HS Metoprolol Tartrate 50 Mg Tablet 1 Tab PO BID Lisinopril 20 Mg Tablet 1 Tab PO BID Sucralfate 1 Gm Tablet 1 Gm PO BID Protonix (Pantoprazole Sodium) 20 Mg Tablet.dr 1 Tab PO DAILY Fish Oil 1,000 Mg Softgel ([place]more-3 Fatty Acids/Fish Oil) 1 Each Capsule 1 Each PO DAILY Centrum Complete Multivit Tab (Multivitamin/Iron/Folic Acid) 1 Each Tablet 1 Each PO DAILY Finasteride 5 Mg Tablet 1 Tab PO DAILY Vitamin B-12 (Cyanocobalamin (Vitamin B-12)) 1,000 Mcg Tablet 1 Tab PO DAILY Aspirin 81 Mg Tab.chew 1 Tab PO DAILY Ascorbic Acid 500 Mg Tablet 1,000 Mg PO DAILY Vitals/I & O Vital Sign - Last 24 Hours 04/05/19 04/05/19 04/05/19 04/05/19 11:15 11:30 11:35 11:45 Temp 98.0 98.0 Pulse 60 60 60 60 Resp 18 18 B/P (MAP) 161/74 (103) Pulse Ox 98 98 95 98 O2 Delivery Nasal Cannula Nasal Cannula Room Air Nasal Cannula O2 Flow Rate 2.0 2.0 2.0 04/05/19 04/05/19 04/05/19 04/05/19 12:00 12:15 12:45 13:15 Pulse 60 60 60 64 Pulse Ox 98 98 98 98 O2 Delivery Nasal Cannula Nasal Cannula Room Air Room Air O2 Flow Rate 2.0 2.0 04/05/19 04/05/19 04/05/19 04/05/19 14:15 14:42 15:15 16:15 Temp 98.7 98.7 Pulse 60 60 60 60 Resp 18 B/P (MAP) 146/64 (91) Pulse Ox 98 96 94 O2 Delivery Room Air Room Air Room Air Room Air 04/05/19 04/05/19 04/05/19 04/05/19 17:15 18:21 18:33 18:41 Temp 97.5 97.5 Pulse 60 69 69 83 Resp 18 B/P (MAP) 172/72 172/72 (105) 135/61 (85) Pulse Ox 94 94 O2 Delivery Room Air Room Air 04/05/19 04/05/19 04/05/19 04/05/19 20:00 20:43 20:43 23:00 Temp 98.0 98.0 Pulse 88 90 72 Resp 20 B/P (MAP) 135/61 135/61 161/70 (100) Pulse Ox 94 O2 Delivery Room Air Room Air 04/06/19 04/06/19 04/06/19 03:00 07:00 08:00 Temp 98.2 98.4 98.2 98.4 Pulse 71 82 Resp 20 18 B/P (MAP) 152/70 (97) 171/72 (105) Pulse Ox 95 93 O2 Delivery Room Air Room Air Room Air Intake and Output 04/05/19 04/05/19 04/06/19 15:00 23:00 07:00 Intake Total 90 ml 300 ml 700 ml Output Total 300 ml 1300 ml 800 ml Balance -210 ml -1000 ml -100 ml RADHA BENOIT MD Apr 06, 2019 09:49
--- NOTE | 2019-04-06 10:21 | CARD ---
MR#: [id number] Date of Study: 04/06/2019 Ordering Physician: GRISEL BUI, Referring Physician: GRISEL BUI, Tech: Minna Preston APPROVED REPORT EXAM: Two-dimensional and M-mode echocardiogram with Doppler and color Doppler. Other Information Quality : AverageHR: 71bpm INDICATION Cardiac Disease: CAD Chest Pain Congestive Heart Failure Surgery/Intervention Pacemaker: 2D DIMENSIONS RVDd2.7 (2.9-3.5cm)Left Atrium(2D)3.6 (1.6-4.0cm) IVSd1.4 (0.7-1.1cm)Aortic Root(2D)3.2 (2.0-3.7cm) LVDd5.2 (3.9-5.9cm)LVOT Diameter2.1 (1.8-2.4cm) PWd1.3 (0.7-1.1cm)LVDs3.0 (2.5-4.0cm) FS (%) 42.0 %SV94.0 ml LVEF(%)72.7 (>50%) Aortic Valve AoV Peak Ketan.187.0cm/sAoV VTI31.8cm AO Peak GR.14.0mmHgLVOT Peak Ketan.127.1cm/s LVOT VTI 25.37cmAO Mean GR.7mmHg LUCRECIA (VMAX)1.30qk2QQT (VTI)2.79cm2 Mitral Valve MV E Iaetxwbq22.9cm/sMV DECEL XSEG676al MV A Lxrhrnlv20.6cm/sMV E Mean Gr.2mmHg MV STB63ynQ/A Ratio0.7 MVA (PHT)2.86cm2 TDI E/Lateral E'9.1E/Medial E'11.5 Tricuspid Valve TR P. Hhujxdiz785yu/sRAP NZWONORE8ehEg TR Peak Gr.77evLfYSZH18veYp Pulmonary Vein S1 Miwdvcqc61.7cm/sD2 Edoyizfm85.9cm/s PVa nevxjkys492bdig LEFT VENTRICLE The left ventricle is normal size. There is moderate concentric left ventricular hypertrophy. The lef t ventricular systolic function is normal and the ejection fraction is within normal range. The Eject ion Fraction is >55%. There is normal LV segmental wall motion. Transmitral Doppler flow pattern is G rade I-abnormal relaxation pattern. RIGHT VENTRICLE The right ventricle is normal size. There is normal right ventricular wall thickness. The right ventr icular systolic function is normal. There is a pacemaker lead in the right ventricle. ATRIA The left atrium size is normal. There is a pacemaker lead seen in the right atrium. The right atrium size is normal. The interatrial septum is intact with no evidence for an atrial septal defect or milton nt foramen ovale as noted on 2-D or Doppler imaging. AORTIC VALVE The aortic valve is thickened but opens well. Doppler and Color Flow revealed no significant aortic r egurgitation. There is no significant aortic valvular stenosis. MITRAL VALVE The mitral valve is normal in structure and function. There is no evidence of mitral valve prolapse. There is no mitral valve stenosis. Doppler and Color-flow revealed trace mitral regurgitation. TRICUSPID VALVE The tricuspid valve is normal in structure and function. Doppler and Color Flow revealed trace tricus pid regurgitation with an estimated PAP of 24 mmHg. There is no tricuspid valve stenosis. PULMONIC VALVE The pulmonic valve is not well visualized. Doppler and Color Flow revealed no pulmonic valvular regur gitation. There is no pulmonic valvular stenosis. GREAT VESSELS The aortic root is normal in size. The ascending aorta is normal in size. The IVC is normal in size a nd collapses >50% with inspiration. PERICARDIAL EFFUSION There is no evidence of significant pericardial effusion. Critical Notification Critical Value: No <Conclusion> The left ventricular systolic function is normal and the ejection fraction is within normal range. Th e Ejection Fraction is >55%. There is normal LV segmental wall motion. There is a pacemaker lead in the right ventricle. Technically difficult study. Signed by : Jason Botello, Electronically Approved : 04/06/2019 10:20:51
[2019-04-06] MEDS: PANTOPRAZOLE 40 MG TABLET.DR. PO SCH (10:33)
[2019-04-06] MEDS: ASCORBIC ACID 500 MG TABLET PO SCH (10:33)
[2019-04-06] MEDS: FINASTERIDE 5 MG TABLET. PO SCH (10:33)
[2019-04-06] MEDS: SUCRALFATE 1 GM TABLET. PO SCH (10:34)
[2019-04-06] MEDS: CYANOCOBALAMIN (VITAMIN B-12) 1,000 MCG TABLET. PO SCH (10:34)
[2019-04-06] MEDS: METOPROLOL TART IMMED RELEASE 50 MG TABLET. PO SCH (10:34)
[2019-04-06 11:00] VITALS: BP 139/63
[2019-04-06] MEDS ORDERED: hydroCHLOROthiazide 12.5 MG CAPSULE PO SCH (11:00)
[2019-04-06] MEDS ORDERED: LISINOPRIL 20 MG TABLET PO SCH (11:00)
--- NOTE | 2019-04-06 12:22 | PDOC ---
GRISEL BUI PRACTICING UROLOGIST 04/06/19 1222: CARDIO Progress Notes Date and Time Date of Service 04/06/2019 Time of Evaluation 1000 Subjective Subjective: No Chest Pain, No shortness of breath, No Palpitations Vitals Vitals Vital Signs Date Time Temp Pulse Resp B/P (MAP) Pulse Ox O2 Delivery O2 Flow Rate FiO2 04/06/19 11:00 97.6 75 18 139/63 (88) 91 Room Air 97.6 04/05/19 12:15 2.0 Weight Weight [ ] Input and Output Intake and Output Intake and Output 04/06/19 07:00 Intake Total 1090 ml Output Total 2400 ml Balance -1310 ml Intake Oral 1090 ml Output Urine Total 2400 ml Physical Exam HEENT: Neck Supple W Full Motion Chest: Symmetric LUNGS: Clear to Auscultation Heart: S1S2, RRR (SR), no gallops Abdomen: Soft N/T Extremities: No Calf Tenderness Neurology: alert, oriented, follow commands Assessment Assessment 1. Unstable angina: PCI/STAR to LCx. Prior LAD stent patent. EF nml. 2. PPM in situ: Biotronik. 3. CAD: LAD stent in 1999 4. HTN: labile 5. HLP: lipids on goal. 6. Arrhythmias: possible SVTs. AFIB burden per pacer is 0. Recommendations 1. Will interrogate device to further ascertain arrhythmias vs PMT. Continue with lopressor 2. ASA/plavix. Encouraged cardiac rehab 3. Continue with secondary prevention 4. Continue BP regimen and start on HCTZ. PATY REYNAGA MD 04/07/19 0854: CARDIO Progress Notes Assessment Assessment Patient seen and examined 04/06/19. 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 s/p PCI/STAR to LCx, stable and chest pain-free. Continue dual antiplatelet therapy. Follow-up in 1 month. GRISEL BUI APRN Apr 06, 2019 12:22 PATY REYNAGA MD Apr 07, 2019 08:54
[2019-04-06 14:52] VITALS: BP 142/66
--- NOTE | 2019-04-06 15:24 | PDOC3 ---
Discharge Summary Date of Admission: Apr 04, 2019 Date of Discharge: Apr 06, 2019 Follow-Up: 3-5 days Admitting Diagnosis comment: discharge dx 1. chest pain, unstable angina with pressure w. known CAD 2. Hx of complete heart block, status post Biotronik permanent pacemaker. There is a pacemaker lead in the right ventricle. 3. Acute on chronic diastolic congestive heart failure, , 4. Hypertension., accelerated, meds given remains suboptimal control new rx lisinopril 40mg po daily hctz 12.5 mg po daily asa 325 mg po daily plavix 75 mg po daily d/c planning 36 min History of Present Illness History of Present Illness hoisting laborer stent placed, feeling better PROCEDURE NARRATIVE After explaining the risks, benefits and alternative options, informed consent was obtained from patient. Patient was brought to the cardiac Microbiology Supervisor and right wrist was prepped and draped in the usual fashion after confirming a positive modified Justus's test. Arterial access was obtained in the right radial artery and a 6 Israeli sheath was inserted. 6 Israeli Ran catheter was used to perform selective angiography of the left and right coronary arteries. 6 Israeli pigtail catheter was used to perform left ventriculography. The following findings were noted. FINDINGS 1. Hemodynamics: Left ventricular end-diastolic pressure of 15 mmHg. No pullback gradient across the aortic valve. 2. Left ventriculography: Normal left ventricle systolic function with ejection fraction estimated at 55-60%. No significant mitral regurgitation seen. 3. Coronary angiography: a. The left main coronary artery arose from the left sinus of Valsalva, gave rise to the left anterior descending and left circumflex arteries and did not show any significant stenosis. b. The left anterior descending artery showed patent stent in the midsegment. c. The left circumflex artery showed calcified 80% stenosis in the proximal segment. The obtuse marginal branch showed 30% stenosis in proximal segment. d. The right coronary artery was a dominant vessel arising from the right sinus of Valsalva that showed 30% stenosis in the proximal to midsegment. INTERVENTION The left main coronary artery was engaged with a 6 Israeli XB 3.5 guide catheter. The stenosis in the proximal segment of the left circumflex artery was crossed with a 0.014 inch DigiFit water guidewire. This was predilated with a 2.5 x 15 mm trek balloon following which this was successfully treated with a 3.0 x 15 mm Xience Alpine drug-eluting stent. Follow-up angiography showed resolution of the stenosis to 0% with KANE-3 distal flow. Patient tolerated the procedure well. Hemostasis was achieved using TR band. There were no immediate complications. KANE Flow KANE Flow (Pre-Intervention): KANE-2 KANE Flow (Post-Intervention): KANE-3 Conclusion 1. Patent previously placed stent in the left anterior descending artery. 80% calcified stenosis involving proximal segment of the left circumflex artery. 2. Successful PCI/STAR to left circumflex artery. 3. Normal left ventricle systolic function with ejection fraction estimated at 55-60%. Recommendations 1. Aspirin 325 mg daily for month followed by 81 mg daily 2. Plavix 75 mA daily for preferably one year 3. Cardiovascular risk factor modification Signed by : Paty Escobar, Electronically Approved : 04/05/2019 11:35:39 DICTATED and SIGNED BY: PATY ESCOBAR MD DATE: 04/05/19 1112 Vitals Vitals Vital Signs Date Time Temp Pulse Resp B/P (MAP) Pulse Ox O2 Delivery O2 Flow Rate FiO2 04/06/19 08:00 Room Air 04/06/19 07:00 98.4 82 18 171/72 (105) 93 98.4 04/05/19 12:15 2.0 Physical Exam General: Alert, Oriented X3, Cooperative, No acute distress Heart: Regular rate (vpaced), Normal S1, Other (2/) Lungs: Clear Abdomen: Normal bowel sounds, Soft, No tenderness Extremities: No cyanosis Skin: No breakdown, No significant lesion Labs LABS TDI E/Lateral E' 9.1 E/Medial E' 11.5 Tricuspid Valve TR P. Velocity 264cm/s RAP ESTIMATE 3mmHg TR Peak Gr. 31mmHg RVSP 34mmHg Pulmonary Vein S1 Velocity 49.7cm/s D2 Velocity 39.9cm/s PVa duration 111msec LEFT VENTRICLE The left ventricle is normal size. There is moderate concentric left ventricular hypertrophy. The left ventricular systolic function is normal and the ejection fraction is within normal range. The Ejection Fraction is >55%. There is normal LV segmental wall motion. Transmitral Doppler flow pattern is Grade I-abnormal relaxation pattern. RIGHT VENTRICLE The right ventricle is normal size. There is normal right ventricular wall thickness. The right ventricular systolic function is normal. There is a pacemaker lead in the right ventricle. ATRIA The left atrium size is normal. There is a pacemaker lead seen in the right atrium. The right atrium size is normal. The interatrial septum is intact with no evidence for an atrial septal defect or patent foramen ovale as noted on 2-D or Doppler imaging. AORTIC VALVE The aortic valve is thickened but opens well. Doppler and Color Flow revealed no significant aortic regurgitation. There is no significant aortic valvular stenosis. MITRAL VALVE The mitral valve is normal in structure and function. There is no evidence of mitral valve prolapse. There is no mitral valve stenosis. Doppler and Color-flow revealed trace mitral regurgitation. TRICUSPID VALVE The tricuspid valve is normal in structure and function. Doppler and Color Flow revealed trace tricuspid regurgitation with an estimated PAP of 24 mmHg. There is no tricuspid valve stenosis. PULMONIC VALVE The pulmonic valve is not well visualized. Doppler and Color Flow revealed no pulmonic valvular regurgitation. There is no pulmonic valvular stenosis. GREAT VESSELS The aortic root is normal in size. The ascending aorta is normal in size. The IVC is normal in size and collapses >50% with inspiration. PERICARDIAL EFFUSION There is no evidence of significant pericardial effusion. Critical Notification Critical Value: No <Conclusion> The left ventricular systolic function is normal and the ejection fraction is within normal range. The Ejection Fraction is >55%. There is normal LV segmental wall motion. There is a pacemaker lead in the right ventricle. Technically difficult study. Signed by : Jason Botello, Electronically Approved : 04/06/2019 10:20:51 FINAL DIAGNOSIS Problems Medical Problems: (1) Chest pain Status: Acute Brief Hospital Course Mr. Cohn is a 83 old [sex] who presented with [ unstable angina] CONDITION AT DISCHARGE: Improved Discharge Medications Current Medications Nitroglycerin (Nitrostat) 0.4 mg PRN Q5MIN PRN SL CP RATING > 1/10 Last administered on 04/04/19at 18:30; Start 04/04/19 at 17:45; Stop 04/05/19 at 17:44; Status DC Metoprolol Tartrate (Lopressor) 50 mg 1X ONCE PO Last administered on 04/04/19at 20:14; Start 04/04/19 at 20:00; Stop 04/04/19 at 20:01; Status DC Lisinopril (Prinivil) 20 mg 1X ONCE PO Last administered on 04/04/19at 20:15; Start 04/04/19 at 20:00; Stop 04/04/19 at 20:01; Status DC Ascorbic Acid (Vitamin C) 1,000 mg DAILY PO Last administered on 04/06/19at 10:33; Start 04/05/19 at 09:00 Aspirin (Children'S Aspirin) 81 mg DAILY PO Last administered on 04/05/19at 08:16; Start 04/05/19 at 09:00; Stop 04/05/19 at 11:25; Status DC Atorvastatin Calcium (Lipitor) 40 mg HS PO Last administered on 04/05/19at 20:42; Start 04/04/19 at 21:00 Cyanocobalamin (Vitamin B-12) 1,000 mcg DAILY PO Last administered on 04/06/19at 10:34; Start 04/05/19 at 09:00 Finasteride (Proscar) 5 mg DAILY PO Last administered on 04/06/19at 10:33; Start 04/05/19 at 09:00 Lisinopril (Prinivil) 20 mg BID PO Last administered on 04/05/19at 20:43; Start 04/05/19 at 09:00; Stop 04/06/19 at 10:20; Status DC Metoprolol Tartrate (Lopressor) 50 mg BID PO Last administered on 04/06/19at 10:34; Start 04/05/19 at 09:00 Sucralfate (Carafate) 1 gm BID PO Last administered on 04/06/19at 10:34; Start 04/04/19 at 21:00 Pantoprazole Sodium (Protonix) 40 mg DAILYAC PO Last administered on 04/06/19at 10:33; Start 04/05/19 at 07:30 Enoxaparin Sodium (Lovenox Per Pharmacy Prophylaxis Dosing) 1 each PRN DAILY PRN MC SEE COMMENTS; Start 04/05/19 at 09:00 Enoxaparin Sodium (Lovenox 40mg Syringe) 40 mg DAILY SQ Last administered on 04/05/19at 08:17; Start 04/05/19 at 09:00 Lidocaine HCl (Xylocaine-Mpf 1% 2ml Vial) 2 ml STK-MED ONCE .ROUTE ; Start 04/05/19 at 09:34; Stop 04/05/19 at 09:34; Status DC Iohexol (Omnipaque 300 Mg/ml) 100 ml STK-MED ONCE .ROUTE ; Start 04/05/19 at 09:34; Stop 04/05/19 at 09:34; Status DC Heparin Sodium/ Sodium Chloride 1,000 ml @ As Directed STK-MED ONCE .ROUTE ; Start 04/05/19 at 09:34; Stop 04/05/19 at 09:34; Status DC Fentanyl Citrate (Fentanyl 2ml Vial) 100 mcg STK-MED ONCE .ROUTE ; Start 04/05/19 at 09:40; Stop 04/05/19 at 09:40; Status DC Midazolam HCl (Versed) 2 mg STK-MED ONCE .ROUTE ; Start 04/05/19 at 09:40; Stop 04/05/19 at 09:40; Status DC Heparin Sodium (Porcine) (Heparin Sodium) 10,000 unit STK-MED ONCE .ROUTE ; Start 04/05/19 at 09:40; Stop 04/05/19 at 09:40; Status DC Verapamil HCl (Verapamil) 5 mg STK-MED ONCE .ROUTE ; Start 04/05/19 at 09:40; Stop 04/05/19 at 09:40; Status DC Nitroglycerin (Nitroglycerin) 200 mcg STK-MED ONCE .ROUTE ; Start 04/05/19 at 09:40; Stop 04/05/19 at 09:41; Status DC Nitroglycerin (Nitroglycerin) 200 mcg 1X ONCE IART Last administered on 04/05/19at 09:45; Start 04/05/19 at 09:45; Stop 04/05/19 at 10:00; Status DC Verapamil HCl (Verapamil) 2.5 mg 1X ONCE IART Last administered on 04/05/19at 09:45; Start 04/05/19 at 09:45; Stop 04/05/19 at 10:00; Status DC Heparin Sodium (Porcine) (Heparin Sodium) 2,500 unit 1X ONCE IART Last administered on 04/05/19at 09:45; Start 04/05/19 at 09:45; Stop 04/05/19 at 10:05; Status DC Heparin Sodium/ Sodium Chloride (HEPARIN for ARTERIAL LINE FLUSH) 1,000 unit 1X ONCE IART Last administered on 04/05/19at 09:45; Start 04/05/19 at 09:45; Stop 04/05/19 at 10:05; Status DC Heparin Sodium/ Sodium Chloride (HEPARIN for ARTERIAL LINE FLUSH) 1,000 unit 1X ONCE IART Last administered on 04/05/19at 09:45; Start 04/05/19 at 09:45; Stop 04/05/19 at 10:05; Status DC Midazolam HCl (Versed) 2 mg 1X ONCE IV Last administered on 04/05/19at 09:45; Start 04/05/19 at 09:45; Stop 04/05/19 at 10:05; Status DC Fentanyl Citrate (Fentanyl 2ml Vial) 100 mcg 1X ONCE IV Last administered on 04/05/19at 09:45; Start 04/05/19 at 09:45; Stop 04/05/19 at 10:05; Status DC Iohexol (Omnipaque 300 Mg/ml) 100 ml 1X ONCE IART Last administered on 04/05/19at 09:45; Start 04/05/19 at 09:45; Stop 04/05/19 at 10:05; Status DC Lidocaine HCl (Xylocaine-Mpf 1% 2ml Vial) 2 ml 1X ONCE INJ Last administered on 04/05/19at 09:45; Start 04/05/19 at 09:45; Stop 04/05/19 at 10:05; Status DC Midazolam HCl (Versed) 2 mg STK-MED ONCE .ROUTE ; Start 04/05/19 at 10:21; Stop 04/05/19 at 10:21; Status DC Bivalirudin (Angiomax) 250 mg STK-MED ONCE IV ; Start 04/05/19 at 10:36; Stop 04/05/19 at 10:36; Status DC Iodixanol (Visipaque 320) 100 ml STK-MED ONCE .ROUTE ; Start 04/05/19 at 10:37; Stop 04/05/19 at 10:37; Status DC Bivalirudin (Angiomax) 250 mg 1X ONCE IV Last administered on 04/05/19at 10:43; Start 04/05/19 at 10:45; Stop 04/05/19 at 10:46; Status DC Clopidogrel Bisulfate (Plavix) 600 mg 1X ONCE PO Last administered on 04/05/19at 11:12; Start 04/05/19 at 11:00; Stop 04/05/19 at 11:01; Status DC Aspirin (Slim Aspirin) 325 mg 1X ONCE PO Last administered on 04/05/19at 11:12; Start 04/05/19 at 11:00; Stop 04/05/19 at 11:01; Status DC Clopidogrel Bisulfate (Plavix) 75 mg STK-MED ONCE .ROUTE ; Start 04/05/19 at 10:57; Stop 04/05/19 at 10:57; Status DC Aspirin (Slim Aspirin) 325 mg STK-MED ONCE .ROUTE ; Start 04/05/19 at 10:57; Stop 04/05/19 at 10:57; Status DC Aspirin (Ecotrin) 325 mg DAILYWBKFT PO Last administered on 04/06/19at 10:33; Start 04/06/19 at 08:00 Sodium Chloride (Normal Saline Flush) 3 ml QSHIFT PRN IV AFTER MEDS AND BLOOD DRAWS; Start 04/05/19 at 11:30 Sodium Chloride 1,000 ml @ 125 mls/hr Q8H IV Last administered on 04/05/19at 12:09; Start 04/05/19 at 11:22; Stop 04/05/19 at 19:21; Status DC Clopidogrel Bisulfate (Plavix) 75 mg DAILYWBKFT PO Last administered on 04/06/19at 10:34; Start 04/06/19 at 08:00 Acetaminophen (Tylenol) 650 mg PRN Q6HRS PRN PO MILD PAIN / TEMP; Start 04/05/19 at 11:30 Nitroglycerin (Nitrostat) 0.4 mg PRN Q5MIN PRN SL CHEST PAIN; Start 04/05/19 at 11:30 Lisinopril (Prinivil) 10 mg 1X ONCE PO ; Start 04/05/19 at 14:15; Stop 04/05/19 at 14:16; Status DC Lisinopril (Prinivil) 10 mg DAILY PO ; Start 04/06/19 at 09:00; Stop 04/06/19 at 10:26; Status DC Hydralazine HCl (Apresoline Inj) 10 mg PRN Q4HRS PRN IVP ELEVATED BP, SEE COMMENTS Last administered on 04/05/19at 18:21; Start 04/05/19 at 18:15 Nitroglycerin (Nitro-Bid Oint) 2 inch PRN Q8HRS PRN TP HYPERTENSION; Start 04/05/19 at 18:30 Lisinopril (Prinivil) 40 mg DAILY PO Last administered on 04/06/19at 10:34; Start 04/06/19 at 11:00 Hydrochlorothiazide (Microzide) 12.5 mg DAILY PO Last administered on 04/06/19at 10:34; Start 04/06/19 at 11:00 Active Scripts Active Reported Atorvastatin Calcium 40 Mg Tablet 40 Mg PO HS Metoprolol Tartrate 50 Mg Tablet 1 Tab PO BID Lisinopril 20 Mg Tablet 1 Tab PO BID Sucralfate 1 Gm Tablet 1 Gm PO BID Protonix (Pantoprazole Sodium) 20 Mg Tablet.dr 1 Tab PO DAILY Fish Oil 1,000 Mg Softgel ([place]-3 Fatty Acids/Fish Oil) 1 Each Capsule 1 Each PO DAILY Centrum Complete Multivit Tab (Multivitamin/Iron/Folic Acid) 1 Each Tablet 1 Each PO DAILY Finasteride 5 Mg Tablet 1 Tab PO DAILY Vitamin B-12 (Cyanocobalamin (Vitamin B-12)) 1,000 Mcg Tablet 1 Tab PO DAILY Aspirin 81 Mg Tab.chew 1 Tab PO DAILY Ascorbic Acid 500 Mg Tablet 1,000 Mg PO DAILY Vital Signs Vital Signs Date Time Temp Pulse Resp B/P (MAP) Pulse Ox O2 Delivery O2 Flow Rate FiO2 04/06/19 14:52 97.6 66 18 142/66 (91) 95 Nasal Cannula 97.6 04/05/19 12:15 2.0 Labs Laboratory Tests Test 04/04/19 17:51 04/05/19 01:30 04/06/19 12:30 White Blood Count 7.6 x10^3/uL (4.0-11.0) 6.7 x10^3/uL (4.0-11.0) Red Blood Count 4.41 x10^6/uL (4.30-5.70) 4.16 x10^6/uL (4.30-5.70) Hemoglobin 14.3 g/dL (13.0-17.5) 13.3 g/dL (13.0-17.5) Hematocrit 42.0 % (39.0-53.0) 39.2 % (39.0-53.0) Mean Corpuscular Volume 95 fL (79-100) 94 fL (79-100) Mean Corpuscular Hemoglobin 32 pg (25-35) 32 pg (25-35) Mean Corpuscular Hemoglobin Concent 34 g/dL (31-37) 34 g/dL (31-37) Red Cell Distribution Width 14.2 % (11.5-14.5) 14.0 % (11.5-14.5) Platelet Count 158 x10^3/uL (140-400) 150 x10^3/uL (140-400) Neutrophils (%) (Auto) 56 % (31-73) 52 % (31-73) Lymphocytes (%) (Auto) 32 % (24-48) 31 % (24-48) Monocytes (%) (Auto) 10 % (0-9) 15 % (0-9) Eosinophils (%) (Auto) 1 % (0-3) 2 % (0-3) Basophils (%) (Auto) 1 % (0-3) 1 % (0-3) Neutrophils # (Auto) 4.3 x10^3/uL (1.8-7.7) 3.4 x10^3/uL (1.8-7.7) Lymphocytes # (Auto) 2.5 x10^3/uL (1.0-4.8) 2.1 x10^3/uL (1.0-4.8) Monocytes # (Auto) 0.8 x10^3/uL (0.0-1.1) 1.0 x10^3/uL (0.0-1.1) Eosinophils # (Auto) 0.1 x10^3/uL (0.0-0.7) 0.1 x10^3/uL (0.0-0.7) Basophils # (Auto) 0.0 x10^3/uL (0.0-0.2) 0.0 x10^3/uL (0.0-0.2) Sodium Level 145 mmol/L (136-145) 144 mmol/L (136-145) Potassium Level 4.3 mmol/L (3.5-5.1) 4.2 mmol/L (3.5-5.1) Chloride Level 107 mmol/L (98-107) 106 mmol/L (98-107) Carbon Dioxide Level 29 mmol/L (21-32) 31 mmol/L (21-32) Anion Gap 9 (6-14) 7 (6-14) Blood Urea Nitrogen 16 mg/dL (8-26) 15 mg/dL (8-26) Creatinine 1.1 mg/dL (0.7-1.3) 1.0 mg/dL (0.7-1.3) Estimated GFR (Cockcroft-Gault) 63.9 71.4 BUN/Creatinine Ratio 15 (6-20) 15 (6-20) Glucose Level 106 mg/dL (70-99) 107 mg/dL (70-99) Calcium Level 9.1 mg/dL (8.5-10.1) 8.5 mg/dL (8.5-10.1) Total Bilirubin 0.8 mg/dL (0.2-1.0) 0.6 mg/dL (0.2-1.0) Aspartate Amino Transf (AST/SGOT) 19 U/L (15-37) 15 U/L (15-37) Alanine Aminotransferase (ALT/SGPT) 23 U/L (16-63) 20 U/L (16-63) Alkaline Phosphatase 89 U/L (46-116) 78 U/L (46-116) Troponin I Quantitative < 0.017 ng/mL (0.000-0.055) < 0.017 ng/mL (0.000-0.055) Total Protein 7.2 g/dL (6.4-8.2) 6.3 g/dL (6.4-8.2) Albumin 3.6 g/dL (3.4-5.0) 3.1 g/dL (3.4-5.0) Albumin/Globulin Ratio 1.0 (1.0-1.7) 1.0 (1.0-1.7) Triglycerides Level 107 mg/dL (0-150) Cholesterol Level 137 mg/dL (0-200) LDL Cholesterol, Calculated 66 mg/dL (0-100) VLDL Cholesterol, Calculated 21 mg/dL (0-40) Non-HDL Cholesterol Calculated 87 mg/dL (0-129) HDL Cholesterol 50 mg/dL (40-60) Cholesterol/HDL Ratio 2.7 Magnesium Level 1.9 mg/dL (1.8-2.4) Laboratory Tests Test 04/06/19 12:30 Magnesium Level 1.9 mg/dL (1.8-2.4) Allergies Allergies Coded Allergies Type Severity Reaction Last Updated Verified No Known Drug Allergies 08/04/18 No Disposition/Orders: D/C to Home Patient Instructions d/c planning 36 min RADHA BENOIT MD Apr 06, 2019 15:24
[2019-04-06] MEDS ORDERED: CLOP75TA PO (15:27)
[2019-04-06] MEDS ORDERED: ACET325T9 PO (15:27)
[2019-04-06] MEDS ORDERED: ASPI325T11 PO (15:27)
[2019-04-06] MEDS ORDERED: LISI-130 PO (15:27)
[2019-04-06] MEDS ORDERED: NITR0.4T24 SL (15:27)
[2019-04-06] MEDS ORDERED: HYDR12.575 PO (15:27)
--- NOTE | 2019-04-06 15:29 | DISCH ---
DISCHARGE INSTRUCTIONS Condition on Discharge Condition on Discharge: Stable Activity After Discharge Activity Instructions for Disc: Activity as tolerated Lifting Instructions after Dis: No heavy lifting, No pulling or pushing Driving Instructions after Dis: Do not drive today Weight Bearing Status after Di: As tolerated Diet after Discharge Diet after Discharge: Cardiac Liquid Texture: Thin Liquid Checks after Discharge Checks after discharge: Check blood press - daily Contacting the DR. after DC Call your doctor for: If your condition worsens RADHA BENOIT MD Apr 06, 2019 15:29
--- NOTE | 2019-04-06 16:34 | NUR ---
Discharge Note: MAAME LAW Discharge instructions and discharge home medications reviewed with Patient and a copy given. All questions have been answered and understanding verbalized. Scripts called into [facility] pharmacy. Stent card and cardiac rehab information given to patient and significant other.
== END 2019-04-06 16:37 | disposition home or self-care (01) | DRG 246 ==
LOC: ER 17:37 → 2 SOUTH 20:17
PROVIDERS: ADMIT Internal Medicine; ATTEND Internal Medicine
PROC: 027034Z Dilation of Coronary Artery, One Artery with Drug-eluting Intraluminal Device, Percutaneous Approach (ICD-10-PCS; principal; 2019-04-05)
PROC: 4A023N7 Measurement of Cardiac Sampling and Pressure, Left Heart, Percutaneous Approach (ICD-10-PCS; 2019-04-05)
PROC: B2111ZZ Fluoroscopy of Multiple Coronary Arteries using Low Osmolar Contrast (ICD-10-PCS; 2019-04-05)
PROC: B2151ZZ Fluoroscopy of Left Heart using Low Osmolar Contrast (ICD-10-PCS; 2019-04-05)
DX: I25.110 Atherosclerotic heart disease of native coronary artery with unstable angina pectoris (principal); I50.33 Acute on chronic diastolic (congestive) heart failure; I11.0 Hypertensive heart disease with heart failure; I48.91 Unspecified atrial fibrillation; K21.9 Gastro-esophageal reflux disease without esophagitis; E78.5 Hyperlipidemia, unspecified; M19.90 Unspecified osteoarthritis, unspecified site; Z95.5 Presence of coronary angioplasty implant and graft; Z95.0 Presence of cardiac pacemaker; Z79.899 Other long term (current) drug therapy
CPT/HCPCS: 36415; 71045; 80053; 80061; 83735; 84484; 85025; 92928; 93005; 93306; 93458; 99152; 99153; C1725; C1769; C1874; C1887; C1892; J0360; J0583; J1644; J1650; J2250; J3010; J3490; Q9967; 99285-25; C1713; G0378

== ENCOUNTER → 2019-05-11 | Outpatient (CLI) | payer MEDICARE ==
[~2019-05-11] MED LIST changes: +ACET325T9 PO; +ASPI325T11 PO; +CLOP75TA PO; +HYDR12.575 PO; +LISI-130 PO; +NITR0.4T24 SL
--- NOTE | 2019-05-11 15:09 | RAD ---
MR#: [id number] Date of Study: 05/11/2019 Ordering Physician: PATY REYNAGA, Referring Physician: PATY REYNAGA Tech: Kaitlin Mccloud RVT, [place] APPROVED REPORT Patient Location: OUT-PATIENT Indications PAD Risk Factors Hypertension Cardiac Disease Smoking VELOCITY AND DOPPLER WAVEFORM ANALYSIS RIGHT cm/secWaveformSeverity LEFT cm/secWaveform Severity pCFA 122.2TriphasicpCFA 167.5Triphasic Prof Fem Art. 112.9BiphasicProf Fem Art. 71.1Biphasic Fem Art Prox. 187.7BiphasicFem Art Prox. 312.3Monophasic Fem Art Mid. 164.5BiphasicFem Art Mid. 163.2Monophasic Fem Art Dist. 100.0BiphasicFem Art Dist. 59.3Monophasic Pop Art(Fossa) 46.7BiphasicPop Art(AK) 36.4Monophasic MEDICATION RECONCILIATION TECHNICIAN Prox. 46.7BiphasicPTA Prox. 63.6Monophasic MEDICATION RECONCILIATION TECHNICIAN Dist. 54.1BiphasicPTA Dist. 34.2Monophasic Per Art Dist.39.8BiphasicPer Art Dist.24.6Monophasic SHAILA Dist. 50.8BiphasicATA Dist. 35.3Monophasic DPA 46BiphasicDPA 34Monophasic Findings Grayscale images of the bilateral lower extremity arterial vessels reveals moderate diffuse plaque On the right side there is likely mild to moderate diffuse disease involving the SFA but no focal hig h-grade stenosis is identified. Below the knee there is three-vessel runoff. The waveforms are mostly biphasic in nature On the left there is likely a greater than 75% stenosis involving the proximal SFA. There are monopha sic waveforms below this lesion. The below-knee vessels are patent with diminished velocities likely related to more proximal obstruction. Critical Notification Critical Value: No <Conclusion> 1. Likely moderate diffuse disease on the right lower extremity 2. Probable focal greater than 75% stenosis involving the proximal SFA on the left. Signed by : Jason Botello, Electronically Approved : 05/11/2019 15:09:02
== END | disposition home or self-care (01) ==
LOC: US 15:17
PROVIDERS: ATTEND Internal Medicine Cardiovascular Disease
DX: I73.9 Peripheral vascular disease, unspecified (principal); I10 Essential (primary) hypertension; F17.200 Nicotine dependence, unspecified, uncomplicated
CPT/HCPCS: 93925

== ENCOUNTER 2019-06-21 06:41 | Outpatient (CLI) | payer MEDICARE ==
[~2019-06-21] VITALS: Ht 170.2 cm; Wt 83.0 kg
[2019-06-21] VITALS (12 sets, daily range): BP systolic 118–160; BP diastolic 53–72
[2019-06-21] MEDS ORDERED: ASPI81TA59 PO (07:18)
[2019-06-21] MEDS ORDERED: CHOL200044 PO (07:18)
[2019-06-21] MEDS ORDERED: IODIXANOL 320 MG/ML 100 ML VIAL. ONE (07:35)
[2019-06-21] MEDS ORDERED: LIDOCAINE 1% Multi-Dose 20 ML VIAL. ONE (07:35)
[2019-06-21 08:02] LABS: CALCIUM 9.3 mg/dL (8.5-10.1); CREATININE 1.1 mg/dL (0.7-1.3); GFR 63.8
[2019-06-21 08:08] LABS: HEMATOCRIT 42.2 % (39.0-53.0); HEMOGLOBIN 14.4 g/dL (13.0-17.5); RED BLOOD COUNT 4.41 x10^6/uL (4.30-5.70); RED CELL DISTRIBUTION WIDTH 14.9 % (11.5-14.5); WHITE BLOOD COUNT 8.3 x10^3/uL (4.0-11.0)
[2019-06-21 08:18] LABS: PROTHROMBIN TIME PATIENT 12.7 SEC (11.7-14.0)
[2019-06-21] MEDS ORDERED: fentaNYL PF VIAL 250 MCG/5 ML VIAL ONE (08:24)
[2019-06-21] MEDS ORDERED: HEPARIN for IV BOLUS 10,000 UNIT/10 ML VIAL. ONE ×2 (08:24→09:10)
[2019-06-21] MEDS ORDERED: MIDAZOLAM HCL/PF 5 MG/5 ML VIAL. ONE (08:24)
[2019-06-21] MEDS ORDERED: IODIXANOL 320 MG/ML 100 ML VIAL. IART ONE (08:30)
[2019-06-21] MEDS ORDERED: fentaNYL PF VIAL 250 MCG/5 ML VIAL IV ONE (08:30)
[2019-06-21] MEDS ORDERED: IV NORMAL SALINE 1000ML BAG 1,000 ML IV ONE (08:30)
[2019-06-21] MEDS ORDERED: LIDOCAINE 1% Multi-Dose 20 ML VIAL. INJ ONE (08:30)
[2019-06-21] MEDS ORDERED: MIDAZOLAM HCL/PF 5 MG/5 ML VIAL. IV ONE (08:30)
[2019-06-21] MEDS ORDERED: dilTIAZem IV PUSH 25 MG/5 ML VIAL ONE (09:13)
[2019-06-21] MEDS ORDERED: NITROGLYCERIN 4 MG/20 ML SYRINGE for CATH LAB. ONE ×2 (09:14→09:30)
[2019-06-21] MEDS ORDERED: NITROGLYCERIN 200 MCG/2 ML SYRINGE FOR CATH/VASC LAB. ONE (09:26)
[2019-06-21] MEDS ORDERED: NITROGLYCERIN 200 MCG/2 ML SYRINGE FOR CATH/VASC LAB. IART ONE ×2 (09:30)
--- NOTE | 2019-06-21 10:23 | PDOC ---
MODERATE SEDATION ASSESSMENT RISKS/ALTERNATIVES Risks/Alternatives Risks and alternatives of this type of sedation and procedure discussed with: RISK/ALTERNATIVES: Patient H & P ON CHART H & P H & P on chart and reviewed for co-morbid conditions and appropriate labs. H&P ON CHART: Yes STATUS PREG STATUS ASSESSED: N/A MEDS/ALLERGIES REVIEWED Meds/Allergies Reviewed Medications and Allergies including time and route of recently administered narcotics and sedatives. MEDS/ALLERGIES REVIEWED: Yes ASA RATING ASA RATING: III AIRWAY ASSESSMENT Airway Assessment Airway patency, oral function limitations, presence of caps, crowns, dentures, partials, and ability to extend neck assessed. AIRWAY ASSESSMENT: Yes MALLAMPATI SCORE MALLAMPATI SCORE: II PRE-SEDATION ASSESSMENT PRE-SEDATION ASSESSMENT: Yes PATY REYNAGA MD Jun 21, 2019 10:23
[2019-06-21] MEDS ORDERED: IV 1/2 NORMAL SALINE 1,000 ML IV SCH (10:29)
[2019-06-21] MEDS ORDERED: ACETAMINOPHEN 325 MG TABLET. PO PRN (10:30)
--- NOTE | 2019-06-21 10:41 | CARD ---
MR#: [id number] Date of Study: 06/21/2019 Ordering Physician: PATY ESCOBAR, Referring Physician: PATY ESCOBAR, Tech: Adriana Childress APPROVED REPORT Patient StatusOUT-PATIENT Director Of Admissions: Adriana Childress Procedure(s) performed: 1. Aortogram with bilateral lower extremity runoff 2. Successful orbital atherectomy/MICROBIOLOGY LAB MANAGER to the left superficial femoral artery fl time: 17.3 mins dose: 61.4 gycm2 contrast: 112 ml visipaque moderate sedation: 80 min INDICATION FOR PROCEDURE The indication(s) include : Peripheral artery disease with claudication. PROCEDURE NARRATIVE After explaining the risks, benefits and alternative options, informed consent was obtained from luiza ent. Patient was brought to the cardiac Wardrobe Image Consultant and his right groin was prepped and draped in the u sual fashion. 20 mL of 2% lidocaine was infiltrated into the skin and subcutaneous tissues for local anesthesia. Arterial access was obtained in the right common femoral artery and a 5 Kazakh sheath was inserted. 5 Kazakh pigtail catheter was used to perform aortogram with bilateral lower extremity run off. The following findings were noted. FINDINGS 1. No significant stenosis involving the distal descending aorta 2. No significant stenosis involving bilateral common iliac arteries 3. The left external iliac artery showed 30% stenosis. The right external iliac artery did not show any significant stenosis. 4. No significant stenosis bilateral common femoral arteries. 5. The left superficial femoral artery showed 60% stenosis in the proximal segment and a long calcif ied 80-90% stenosis involving the mid and distal segments. The right superficial femoral artery showe d 50% stenosis in the proximal segment and a long calcified 80% stenosis in the midsegment. 6. No significant stenosis involving popliteal arteries bilaterally. 7. There is good three-vessel runoff below the knee bilaterally. INTERVENTION The sheath in the right groin was exchanged to a 6 Kazakh 45 cm destination sheath which was advanced over the aortic cristhian with the help of a crossover catheter and the tip was positioned in the left external iliac artery. The long lesion in the left superficial femoral artery was crossed with a 0.01 4 inch command ES guidewire that was then exchanged over a Quickcross microcatheter to a 0.014 inch v iper guidewire. Multiple orbital atherectomy passes were then performed using CSI 1.5 Diamondback ath erectomy catheter. Subsequently, the lesion was dilated with a 5.5 x 1 50 mm Greystripe [place] balloon. F ollow-up angiography showed resolution of the lesion with good distal flow. Patient tolerated the pro cedure well. Hemostasis in the right groin was achieved using Angio-Seal. There were no immediate com plications. Conclusion 1. Severe bilateral lower extremity peripheral artery disease as described above 2. Successful orbital atherectomy/MICROBIOLOGY LAB MANAGER to the left superficial femoral artery Recommendations Plan for staged atherectomy/MICROBIOLOGY LAB MANAGER to the right superficial femoral artery Vascular risk factor modification Signed by : Paty Escobar, Electronically Approved : 06/21/2019 10:40:57
--- NOTE | 2019-06-21 14:32 | NUR ---
Discharge Note: PATY LAW [facility] Discharge instructions and discharge home medications reviewed with Patient and a copy given. All questions have been answered and understanding verbalized. The following instructions and handouts were given: groin site care,arteriogram, and adult moderate sedation Discontinued lines and drains: Peripheral IV intact. Patient discharged to Home or Self Care withSignificant Othervia Wheelchair
== END 2019-06-21 14:30 | disposition home or self-care (01) ==
LOC: CCL 06:41
PROVIDERS: ATTEND Internal Medicine Cardiovascular Disease
DX: I70.212 Atherosclerosis of native arteries of extremities with intermittent claudication, left leg (principal); E78.5 Hyperlipidemia, unspecified; I25.10 Atherosclerotic heart disease of native coronary artery without angina pectoris; I25.2 Old myocardial infarction; Z79.82 Long term (current) use of aspirin; Z79.899 Other long term (current) drug therapy; Z85.46 Personal history of malignant neoplasm of prostate
CPT/HCPCS: 36415; 37225; 75630; 75716; 80048; 85027; 85610; 99152; 99153; C1713; C1724; C1725; C1760; C1769; C1892; C1894; J1644; J2250; J3010; J3490; J7030; Q9967; G0269; C1771

== ENCOUNTER 2019-07-05 06:50 | Outpatient (CLI) | payer MEDICARE ==
[2019-07-05] VITALS (14 sets, daily range): BP systolic 138–178; BP diastolic 64–86
[~2019-07-05] VITALS: Ht 170.2 cm; Wt 81.6 kg
[~2019-07-05 06:50] MED LIST changes: +ASPI81TA59 PO; +CHOL200044 PO
[2019-07-05] MEDS ORDERED: LIDOCAINE 1% Multi-Dose 20 ML VIAL. ONE (07:31)
[2019-07-05] MEDS ORDERED: IODIXANOL 320 MG/ML 100 ML VIAL. ONE (07:32)
[2019-07-05 07:35] LABS: HEMATOCRIT 39.8 % (39.0-53.0); HEMOGLOBIN 13.7 g/dL (13.0-17.5); RED BLOOD COUNT 4.15 x10^6/uL (4.30-5.70); RED CELL DISTRIBUTION WIDTH 14.7 % (11.5-14.5); WHITE BLOOD COUNT 8.7 x10^3/uL (4.0-11.0)
[2019-07-05 07:47] LABS: PROTHROMBIN TIME PATIENT 13.1 SEC (11.7-14.0)
[2019-07-05 07:49] LABS: CALCIUM 8.9 mg/dL (8.5-10.1); GFR 71.2; POTASSIUM 4.1 mmol/L (3.5-5.1)
[2019-07-05] MEDS ORDERED: MIDAZOLAM HCL/PF 2 MG/2 ML VIAL. ONE (08:32)
[2019-07-05] MEDS ORDERED: fentaNYL PF VIAL 100 MCG/2 ML VIAL ONE (08:33)
[2019-07-05] MEDS ORDERED: HEPARIN for IV BOLUS 10,000 UNIT/10 ML VIAL. ONE (08:33)
[2019-07-05] MEDS ORDERED: dilTIAZem IV PUSH 25 MG/5 ML VIAL ONE (08:33)
[2019-07-05] MEDS ORDERED: NITROGLYCERIN 4 MG/20 ML SYRINGE for CATH LAB. ONE ×2 (08:33→09:00)
[2019-07-05] MEDS ORDERED: fentaNYL PF VIAL 100 MCG/2 ML VIAL IV ONE (09:15)
[2019-07-05] MEDS ORDERED: HEPARIN for IV BOLUS 10,000 UNIT/10 ML VIAL. IV ONE (09:15)
[2019-07-05] MEDS ORDERED: LIDOCAINE 1% Multi-Dose 20 ML VIAL. INJ ONE (09:15)
[2019-07-05] MEDS ORDERED: MIDAZOLAM HCL/PF 2 MG/2 ML VIAL. IV ONE (09:15)
[2019-07-05] MEDS ORDERED: IODIXANOL 320 MG/ML 100 ML VIAL. IV ONE (09:45)
[2019-07-05] MEDS ORDERED: NITROGLYCERIN 200 MCG/2 ML SYRINGE FOR CATH/VASC LAB. IART ONE (09:45)
--- NOTE | 2019-07-05 10:05 | CARD ---
MR#: [id number] Date of Study: 07/05/2019 Ordering Physician: PATY REYNAGA, Referring Physician: PATY REYNAGA, Tech: DICKSON COHN RTR APPROVED REPORT Patient StatusOUT-PATIENT Lawyer Real Estate: DICKSON COHN RTR Procedure(s) performed: Successful orbital atherectomy/KNIFE EDGER/stent placement to the right superficial f emoral artery MODERATE SEDATION TIME: 71 MINUTES FLUORO TIME: 20.2 MIN DOSE: 30.1 GYCM2 CONTRAST: 50CC VISI INDICATION FOR PROCEDURE The indication(s) include : 84-year-old male with peripheral artery disease with claudication underwe nt atherectomy/KNIFE EDGER to left SFA on 06/21/19. He presented today for staged KNIFE EDGER to right SFA.. PROCEDURE NARRATIVE After explaining the risks, benefits and alternative options, informed consent was obtained from luiza ent. Patient was brought to the cardiac Transportation Director and his left groin was prepped and draped in the usu al fashion. 20 mL of 2% lidocaine was infiltrated into the skin and subcutaneous tissues for local an esthesia. Arterial access was obtained in the left common femoral artery and a 6 English 45 cm destina tion sheath was inserted. This was advanced over the aortic cristhian with the help of a 5 English crosso monique catheter and the tip was positioned in the very proximal segment of the right superficial femoral artery. Selective angiography confirmed the previously described heavily calcified long 80% stenosis involving the midsegment of right superficial femoral artery. There was three-vessel runoff below th e knee. The stenosis in the right SFA was crossed with a 0.014 inch viper guidewire. Multiple orbital atherec tita passes were then performed using [employer] Diamondback 1.5 atherectomy catheter. The lesion was then d ilated with a 5.5 x 1 20 mm Chen [place] balloon. The mid portion of the lesion that showed recoil s econdary to calcification was then treated with 5.5 x 100 mm Chen Supera self-expanding stent. Foll ow-up angiography showed resolution of the lesion with good distal flow. Patient tolerated the proced ure well. Hemostasis in the left groin was achieved using Angio-Seal. There were no immediate complic ations. Conclusion Successful orbital atherectomy/KNIFE EDGER/stent placement to the right superficial femoral artery Recommendations Vascular risk factor modification including regular exercise regimen Signed by : Paty Reynaga, Electronically Approved : 07/05/2019 10:05:02
--- NOTE | 2019-07-05 10:09 | PDOC ---
MODERATE SEDATION ASSESSMENT RISKS/ALTERNATIVES Risks/Alternatives Risks and alternatives of this type of sedation and procedure discussed with: RISK/ALTERNATIVES: Patient H & P ON CHART H & P H & P on chart and reviewed for co-morbid conditions and appropriate labs. H&P ON CHART: Yes STATUS PREG STATUS ASSESSED: N/A MEDS/ALLERGIES REVIEWED Meds/Allergies Reviewed Medications and Allergies including time and route of recently administered narcotics and sedatives. MEDS/ALLERGIES REVIEWED: Yes ASA RATING ASA RATING: II AIRWAY ASSESSMENT Airway Assessment Airway patency, oral function limitations, presence of caps, crowns, dentures, partials, and ability to extend neck assessed. AIRWAY ASSESSMENT: Yes MALLAMPATI SCORE MALLAMPATI SCORE: II PRE-SEDATION ASSESSMENT PRE-SEDATION ASSESSMENT: Yes PATY REYNAGA MD Jul 05, 2019 10:09
[2019-07-05] MEDS ORDERED: IV 1/2 NORMAL SALINE 1,000 ML IV SCH (10:10)
[2019-07-05] MEDS ORDERED: ACETAMINOPHEN 325 MG TABLET. PO PRN (10:15)
--- NOTE | 2019-07-05 14:14 | NUR ---
Discharge Note: PATY LAW Discharge instructions and discharge home medications reviewed with patient and Spouse and a copy given. All questions have been answered and understanding verbalized. Patient ate breakfast with no issues. The following instructions and handouts were given: Moderate sedation, groin site care and angiography with stent placement. Discontinued lines and drains: Left forearm, dressing clean dry intact. Patient discharged to home with significant other via wheelchair to private vehicle.
== END 2019-07-05 13:10 | disposition home or self-care (01) ==
LOC: CCL 06:50
PROVIDERS: ATTEND Internal Medicine Cardiovascular Disease
DX: I70.213 Atherosclerosis of native arteries of extremities with intermittent claudication, bilateral legs (principal); I10 Essential (primary) hypertension; E78.5 Hyperlipidemia, unspecified; I25.10 Atherosclerotic heart disease of native coronary artery without angina pectoris; Z90.49 Acquired absence of other specified parts of digestive tract; Z98.890 Other specified postprocedural states; Z79.82 Long term (current) use of aspirin; Z79.899 Other long term (current) drug therapy; Z79.01 Long term (current) use of anticoagulants
CPT/HCPCS: 36415; 37227; 75710; 80048; 85027; 85610; 85730; C1724; C1725; C1760; C1769; C1876; C1894; J1644; J2250; J3010; J3490; J7030; Q9967; 99152; 99153; G0269; C1771